=== PATIENT | female | born 1940 | race Caucasian/White ===

== ENCOUNTER 2016-09-23 09:41 | Observation (INO) ==
[2016-09-23] MEDS: 0.9 % Sodium Chloride 1,000 ML IVC SCH ×2 (10:42→17:19)
[2016-09-23] MEDS ORDERED: *HR* Midazolam HCl 2 MG/2 ML VIAL ONE (11:32)
[2016-09-23] MEDS ORDERED: *HR* FentaNYL (PF) 100 MCG/2 ML VIAL ONE (11:33)
[2016-09-23] MEDS ORDERED: 0.9 % Sodium Chloride 1,000 ML ONE ×2 (11:33→13:27)
[2016-09-23] MEDS ORDERED: *HR* Heparin 10,000 UNIT/10 ML VIAL ONE (11:33)
[2016-09-23] MEDS ORDERED: Heparin 1,000 UNITS/500 mL NS 500 ML ONE (11:33)
--- NOTE | 2016-09-23 11:48 | History & Physical Report ---
Date of Encounter: 09/23/16 Time of Encounter: 11:48 24 Hour HP Update - Instructions Instructions: If the History and Physical is less than 30 days old and was completed prior to A.M. admission and or procedure and has NOT been updated on calendar day of procedure please complete this update prior to performing procedure. - Update Patient reports changes in Medical Condition: No Changes in examination, assessment, or condition: No Changes in Medication: No Preop tests/diagnostics Reviewed: Yes Surgery Remains Indicated: Yes Consent for Planned Operative Procedure(s) Verified: Yes - Pre-Operative Checklist Preoperative Checklist Indicated: No Prophylactic Antibiotic Ordered: No Home Medications Include Beta Tong: Yes Beta Tong Taken Today (Day of Surgery): Yes Beta Tong Taken Yesterday (Day Prior to Surgery): Yes Is VTE Prophylaxis Indicated?: NO
--- NOTE | 2016-09-23 11:49 | Pre-Sedation Evaluation ---
Pre-sedation evaluation - Pre-sedation checklist Date of procedure: 09/23/16 Procedure: PERIPHERAL AND CAROTID ANGIOGRAM Recent Vitals: Last Vital Signs Temp 97 F L 09/23/16 10:05 Pulse 44 09/23/16 10:05 Resp 18 09/23/16 10:05 BP 173/54 09/23/16 10:05 Pulse Ox 98 09/23/16 10:05 H&P (including ROS) documented in medical record: Yes Previous reaction to sedatives/anesthetics: No Dietary Status: NPO after Midnight Dentition: No loose teeth or bridges Possible difficult airway: No ASA Classification *see protocol: CLASS III-Severe systemic disease Plan of Care: Pt appropriate candidate for procedure/moderate/conscious sedation , Risks/benefits of procedure/sedation discussed w/ patient/family
--- NOTE | 2016-09-23 12:55 | Procedure Note ---
Date of procedure: 09/23/16 Pre-op diagnosis: Carotid stenosis/PAD/Claudivcation Post-op diagnosis: same Procedure: arch aortogram bilateral carotid angiograms abdominal aortogram aortogram with bilateral runoff Anesthesia: MAC Surgeon: Dung Gearrdo Condition: stable Disposition: same day (patient will need bilateral carotid endarterectomy and bilateral fem-pop bypass grafts)
[2016-09-23] MEDS ORDERED: *HR* HYDROcodone/Acet 5/325 mg TABLET PO PRN (12:59)
[2016-09-23] MEDS ORDERED: Acetaminophen 325 MG TABLET PO PRN (12:59)
[2016-09-23] MEDS ORDERED: Ondansetron 4 MG/2 ML VIAL IVP PRN (12:59)
[2016-09-23] MEDS ORDERED: *HR* Morphine 2 MG/ML SYRINGE IVP PRN (12:59)
--- NOTE | 2016-09-23 12:59 | Discharge Summary ---
Outpatient Proc Discharge Plan - Plan Additional Instructions: per femoral sheath protocol will need bilateral carotid endarterectomy will need bilateral femoral-popliteal bypass grafts Home Medications: ALPRAZolam [Xanax 0.25 MG Tablet] 0.25 mg PO BID 09/23/16 [History] Allopurinol [Zyloprim 100 MG] 100 mg PO DAILY 09/23/16 [History] Aspirin [Lo-Dose Aspirin EC] 81 mg PO DAILY 09/23/16 [History] Clopidogrel [Plavix] 75 mg PO DAILY 09/23/16 [History] Loratadine [Claritin] 10 mg PO DAILY 09/23/16 [History] Metoprolol Tartrate [Lopressor] 50 mg PO BID 09/23/16 [History] Ramipril [Altace] 10 mg PO DAILY 09/23/16 [History] Ranitidine HCl [Heartburn Relief] 150 mg PO BID 09/23/16 [History]
--- NOTE | 2016-09-23 14:46 | Invasive Diagnostic Lab Proc ---
Name: Ira Harkins Date of Study: 09/23/2016 Date: 1940 Ht: 165.1 in Medical Record#: [id number] Age: 76 Wt: 78.89696 lb Gender: Female BSA: 1.86 Order #: [id number] BMI: 28.95 Physicians Performing MD: Dung Gerardo MD, FACS Referring MD: Referring MD: Elpidio Ruggiero MD Staff Name Position Time In Kathya Crowley RT (R) Pre-Op Nurse Yaneli Yeung RT (R) Monitor Kathya Crowley RT (R) Scrub Rosana Campuzano RN Farm Boss Indications Asymptomatic Carotid Stenosis Claudication Procedures Performed AORTOGRAPHY, ABDOMINAL S&I AORTOGRAPHY EXT Bilat S&I BILAT PLCE CATH CARTD/INOM ART Pre-Procedure Checklist Informed consent is complete signed and on chart. H&P is on chart. ID band is on and ID verified with patient. Patient NPO for procedure The procedure was described for the patient and questions were answered. Blood Pressure: 173/54 ECG is on chart. Rhythm: Sinus Bradycardia Plan of Care Patient will tolerate the procedure without complications. Adequate level of comfort will be maintained. Hemodynamics will remain stable Patient will recover from procedure without complications. Respiratory function will be maintained. Cardiac rhythm will remain stable. Patient temperature will be maintained. Patient and/or family have verbalized understanding of the procedure. Patient Education Intravenous Access Time IV Size Location DC'd Fluid/Drip Rate Units RN 10:39 Started with 20g 1 1/4" Lt Antecubital 0.9NaCl 25 ml/hr Jemima Brian RN Allergies SULFA (sulfonamide) Amoxicillin guaifenesin Sulfa (Sulfonamide Antibiotics) Ejrftrz-Rlk-Ozl Reductase Inhibitor baclofen hydrochlorothiazide Vital Signs Time BP Systolic BP Diastolic HR O2 Sats ASA 10:39 AM 173 54 44 98 11:51 AM 11:52 AM 178 70 47 100 11:54 AM 171 68 49 100 11:57 AM 161 67 48 100 12:00 PM 163 67 46 100 12:03 PM 159 64 45 100 12:06 PM 169 69 49 100 12:09 PM 179 69 52 100 12:12 PM 176 69 53 100 12:15 PM 170 70 50 100 12:19 PM 157 63 44 100 12:21 PM 159 74 49 100 12:24 PM 148 65 48 100 12:28 PM 159 71 46 100 12:30 PM 159 65 52 100 12:33 PM 155 62 46 100 12:37 PM 175 70 48 100 12:39 PM 166 68 47 100 12:42 PM 160 66 47 99 12:46 PM 160 69 56 98 12:48 PM 167 75 46 100 12:51 PM 174 73 47 99 12:54 PM 170 72 48 99 12:57 PM 170 69 42 100 01:00 PM 160 64 43 97 01:04 PM 176 88 49 100 01:07 PM 180 89 54 99 01:09 PM 176 93 54 100 01:12 PM 150 73 47 97 01:15 PM 139 82 46 98 Procedure Medications Time Medication Dose Units Method Route 11:51 AM Versed 1 mg Intravenous 11:51 AM Fentanyl 50 mcg Intravenous 11:59 AM Lidocaine 2% 10 ml Subcutaneous 12:35 PM Fentanyl 50 mcg Intravenous 12:35 PM Oxygen 2 L/min nasal cannula 01:42 PM Zofran 4 mg Intravenous Luz Marina Score Preprocedure Postprocedure Activity 2- Moves 4 extremities sustained head lift Activity Circulation 2- SBP +/= 20 points of pre-anesthetic level Circulation Consciousness 2- Awake and alert oriented x 3 Consciousness O2 Saturation 2- Able to maintain O2 satruation of 92% on room air O2 Saturation Respiratory 2- Able to deep breathe and cough well Respiratory Total Score 10 Total Score Contrast: Isovue 300- 150ml Contrast Amount: 185 ml Fluoro Dose: 894 mGy Procedure Log Time Note Entered By 11:43 AM Pt arrived to screedman/laborer 1 at 11:43 11:43 AM Yaneli Yeung RT (R) Position: Monitor Time in: 11:43 11:44 AM Kathya Crowley RT (R) Position: Scrub Time in: 11:43 11:44 AM Rosana Campuzano RN Position: Farm Boss Time in: 11:44 11:44 AM Case delayed: No [email or web address] 11:45 AM Physician arrived 11:45 11:45 AM Kayode completed [email or web address] 11:45 AM Sign in performed according to hospital policy. [email or web address] 11:45 AM Procedure start 11:45 ell 11:51 AM 11:51 Versed 1 mg Intravenous Given by Rosana Campuzano RN [facility] 11:51 AM 11:51 Fentanyl 50 mcg Intravenous Given by Rosana Campuzano RN [facility] 11:51 AM Time: 11:51 Is patient comfortable and pain free?: Yes [facility] 11:51 AM Time: 11:51LOC: 4 = Oriented but drowsy [facility] 11:51 AM IV Supplies used: J loop Angio Cath. [facility] 11:51 AM Patient charges- Angio tray pack, Pulse Oximetry and ACIST tubing and transducer [facility] 11:57 AM Time out perfomed [email or web address] 11:59 AM 11:59 10 ml Lidocaine 2% to right groin Subcutaneous Given By Dung Gerardo MD, FACS [email or web address] 12:01 PM Access obtained in the right femoral artery by percutaneous puncture. 5 Fr. 10 cm Terumo [place] sheath placed in right femoral artery [email or web address] 12:01 PM 0.035 145cm J-wire wire utilized to assist with catheter placement [email or web address] 12:01 PM 5Fr Pigtail catheter inserted over the wire [email or web address] 12:02 PM 3 mls contrast injected into Ao arch [email or web address] 12:03 PM Aortic arch angiography performed in [place] contrast injected 10/25 mls. [email or web address] 12:04 PM Catheter removed [email or web address] 12:04 PM 5Fr Rahman 2 catheter inserted over the wire [email or web address] 12:05 PM 2 mls of contrast injected into Rt CCA. [email or web address] 12:06 PM Right carotid angiography performed in AP contrast injected 5/7 mls. [email or web address] 12:07 PM Right carotid angiography performed in lateral contrast injected 5/7 mls. [email or web address] 12:09 PM Right carotid angiography performed in PHAM contrast injected 3/5 mls. [email or web address] 12:10 PM Physician reviewing films. [email or web address] 12:10 PM Catheter repositioned for LCCA. [email or web address] 12:12 PM Left carotid angiography performed in AP contrast injected 5/7 mls. [email or web address] 12:12 PM Left carotid angiography performed in lateral contrast injected 5/7 mls. [email or web address] 12:13 PM Left carotid angiography performed in [place] contrast injected 3/5 mls. [email or web address] 12:14 PM Left carotid angiography performed in PHAM contrast injected 3/5 mls. [email or web address] 12:15 PM Diagram Region: Cerebrovascular Arteries Anatomical Region: CV-Art80% Lesion in Proximal Left Internal Carotid Intervention done: 0 (1=yes, 0=no) [email or web address] 12:16 PM Diagram Region: Cerebrovascular Arteries Anatomical Region: CV-Art80% Lesion in Proximal Right Internal Carotid Intervention done: 0 (1=yes, 0=no) [email or web address] 12:17 PM Left subclavian angiography performed in [place] contrast injected 10/10 mls. [email or web address] 12:18 PM Diagram Region: Cerebrovascular Arteries Anatomical Region: CV-Ojy177% Lesion in Proximal Left Vertebral Intervention done: 0 (1=yes, 0=no) [email or web address] 12:18 PM Catheter removed [email or web address] 12:20 PM Pigtail catheter re-inserted. [email or web address] 12:21 PM Abdominal aorta angiography performed in AP contrast injected 10/20 mls. [email or web address] 12:23 PM Right common iliac angiography performed in [place] contrast injected 8/12 mls. [email or web address] 12:24 PM Left common illiac angiography performed in PHAM contrast injected 8/12 mls. [email or web address] 12:26 PM Setting up for stepping [email or web address] 12:26 PM Abdominal angiogram with runoff completed: 6 ml/sec for a total of 60 mls [email or web address] 12:29 PM Physician reviewing films. [email or web address] 12:31 PM Catheter removed [email or web address] 12:32 PM 5Fr Omniflush catheter inserted over the wire [email or web address] 12:32 PM Diagram Region: Lower Extremity Arteries Anatomical Region: LE-Ohk375% Lesion in Proximal Left Superficial Femoral Intervention done: 1 (1=yes, 0=no) [email or web address] 12:32 PM Diagram Region: Lower Extremity Arteries Anatomical Region: LE-Mtz709% Lesion in Proximal Right Superficial Femoral Intervention done: 0 (1=yes, 0=no) [email or web address] 12:34 PM Catheter removed [email or web address] 12:34 PM Intervention started at this time [email or web address] 12:34 PM Sheath exchanged for a 6 Fr 45 cm Terumo [place] sheath inserted into right femoral artery [email or web address] 12:35 PM 12:35 Fentanyl 50 mcg Intravenous Given by Rosana Campuzano RN [email or web address] 11:50 AM 12:35 Oxygen at 2 L/min per nasal cannula by Rosana Campuzano RN [email or web address] 12:37 PM 2 mls of contrast injected into Rt SFA. [email or web address] 12:38 PM 5Fr 65cm Glidecath Angled-Taper guide catheter advanced to target vessel [email or web address] 12:39 PM 0.035 Glidewire Angled 260cm guidewire advanced to target vessel. [email or web address] 12:43 PM 3 mls of contrast injected into Lt SFA. [email or web address] 12:45 PM Guide wire removed intact [email or web address] 12:45 PM Guide catheter removed intact [email or web address] 12:45 PM Sheath pulled back. [email or web address] 12:47 PM Procedure completed at 12:47 [email or web address] 12:48 PM Sign Out completed: Radiation Dose 894.10 mGy Fluoro Time: 10.1 minutes. Isovue 300- 150ml contrast 185 ml given by Dung Gerardo MD, FACS. Complications: None. Confirmed administered medications:Yes [email or web address] 12:48 PM Isovue 300- 150ml,1 bottle(s) used. [email or web address] 12:51 PM Arterial sheath pulled using manual compression and V+Pad for 20 minutes by Kathya Crowley RT (R) [email or web address] 12:51 PM Post Blood Pressure: 167/75 [email or web address] 12:51 PM Post EKG: Sinus Bradycardia [email or web address] 12:51 PM Information taught: Carotid angiogram and Peripheral angiogram [email or web address] 12:51 PM Education needs: Procedure, Plan of Care, and Disease Process [email or web address] 12:51 PM Learning barriers: None [email or web address] 12:51 PM Education methods: Verbal [email or web address] 12:51 PM Education evaluation: Able to repeat information [email or web address] 12:51 PM Patient pain level 10/10 Pt complained of right sided abdominal pain upon palpation it is noted that the area was firm and tender to touch. Palpation of access area no hematoma noted. [email or web address] 12:51 PM Delay to floor: No [email or web address] 12:51 PM Family placed in consult room. [email or web address] 12:53 PM Report given to Jemima SAMUEL. Pt taken to Holding room, Room # 1 12:52 [email or web address] 12:54 PM Pt taken to Holding room [email or web address] 12:54 PM Fluoro Time: 10.1 minutes [email or web address] 12:54 PM Isovue 300- 150ml contrast 185 ml given by Dung Gerardo MD, FACS [email or web address] 12:54 PM Radiation Dose 894.10 mGy [email or web address] 01:16 PM Site status No bleeding/hematoma - Rt Groin as reported by Rubia Brian RN at 13:16 [email or web address] 01:16 PM Opsite applied [email or web address] 01:16 PM Patient out of room 13:16 [email or web address] 12:00 PM HR=46 bpm, TPBZ=767/67 mmhg, JdQ7=111.0 %, Resp=13 B/min, Comment=SB 12:03 PM HR=45 bpm, COKE=467/64 mmhg, KlX7=161.0 %, Resp=15 B/min, Comment=SB 12:06 PM HR=49 bpm, DZAO=773/69 mmhg, SzU4=421.0 %, Resp=13 B/min, Comment=SB 12:09 PM HR=52 bpm, MTHH=582/69 mmhg, YsS1=170.0 %, Resp=11 B/min, Comment=SB 12:12 PM HR=53 bpm, USBA=850/69 mmhg, NtQ6=053.0 %, Resp=13 B/min, Comment=SB 12:15 PM HR=50 bpm, DOCW=067/70 mmhg, HoB6=524.0 %, Resp=11 B/min, Comment=SB 12:19 PM HR=44 bpm, CHNN=960/63 mmhg, IdN1=979.0 %, Resp=13 B/min, Comment=SB 12:21 PM Recorded ECG: HR=43 Condition=Condition 1 12:21 PM HR=49 bpm, HMNE=860/74 mmhg, PfC7=289.0 %, Resp=23 B/min, Comment=SB 12:24 PM HR=48 bpm, KFKD=176/65 mmhg, FbK5=707.0 %, Resp=12 B/min, Comment=SB 12:54 PM HR=48 bpm, ZVUE=377/72 mmhg, SpO2=99.0 %, Resp=16 B/min, Comment=SB 12:57 PM HR=42 bpm, ACXZ=610/69 mmhg, ZlS0=933.0 %, Resp=15 B/min, Comment=SB 01:00 PM HR=43 bpm, FWFO=698/64 mmhg, SpO2=97.0 %, Resp=10 B/min, Comment=SB 01:04 PM HR=49 bpm, ANOV=957/88 mmhg, DjF3=111.0 %, Resp=18 B/min, Comment=SB 01:07 PM HR=54 bpm, KSNM=375/89 mmhg, SpO2=99.0 %, Resp=25 B/min, Comment=SB 01:09 PM HR=54 bpm, DTYL=595/93 mmhg, VyY1=351 %, Resp=11 B/min 01:12 PM HR=47 bpm, RNGY=683/73 mmhg, SpO2=97.0 %, Resp=16 B/min, Comment=SB 01:15 PM HR=46 bpm, MIQS=532/82 mmhg, SpO2=98 % 01:18 PM Vitals capture stopped. 11:43 AM PVIStat 11:51 AM Vitals capture started with the following parameters, Patient=Adult, Interval=3 min, Initial Gtpohbia=088 mmHg, Deflation Rate=5 mmHg, Cuff placed on Right Arm 11:51 AM Recorded ECG: HR=48 Condition=Condition 1 11:52 AM HR=47 bpm, IOIZ=573/70 mmhg, DaV8=904.0 %, Resp=11 B/min, Comment=SB 11:54 AM HR=49 bpm, NJHM=424/68 mmhg, RuS1=324.0 %, Resp=15 B/min 11:57 AM HR=48 bpm, MRQI=940/67 mmhg, JoV0=477.0 %, Resp=11 B/min, Comment=SB 12:28 PM HR=46 bpm, DWDB=232/71 mmhg, KoU1=745.0 %, Resp=18 B/min, Comment=SB 12:30 PM HR=52 bpm, KETD=254/65 mmhg, ExN8=841.0 %, Resp=20 B/min, Comment=SB 12:30 PM Recorded ECG: HR=52 Condition=Condition 1 12:33 PM HR=46 bpm, ZCYA=921/62 mmhg, GbA2=298.0 %, Resp=15 B/min, Comment=SB 12:37 PM HR=48 bpm, JTVK=825/70 mmhg, AgK8=930.0 %, Resp=15 B/min, Comment=SB 12:39 PM HR=47 bpm, RLQV=043/68 mmhg, IjU2=319.0 %, Resp=25 B/min, Comment=SB 12:42 PM HR=47 bpm, BENY=765/66 mmhg, SpO2=99.0 %, Resp=22 B/min, Comment=SB 12:46 PM HR=56 bpm, LOXE=179/69 mmhg, SpO2=98.0 %, Resp=16 B/min, Comment=SB 12:48 PM HR=46 bpm, EKCW=724/75 mmhg, OcK6=711.0 %, Resp=20 B/min, Comment=SB 12:51 PM HR=47 bpm, KGZF=027/73 mmhg, SpO2=99.0 %, Resp=13 B/min, Comment=SB 01:20 PM Pt went to holding area. Dr Gerardo notified that pt continued to have right sided abdominal pain and firmness. CT ordered. [email or web address] 01:[address] stat accompanied by Rosana Campuzano RN, Rubia Brian RN. Life Pack in place. [email or web address] 01:22 PM BP 66/40, fluids opened. [email or web address] 01:24 PM BP 80/59 [email or web address] 01:[address] scan. [email or web address] 01:42 PM Time: 13:42 Zofran 4 mg Intravenous Given by Rosana Campuzano RN [email or web address] 01:46 PM Large Retroperitoneal bleed verified by Radiologist. [email or web address] 01:48 PM Patient admitted to ICU. [email or web address] 01:50 PM Report given to Titus SAMUEL ICU [email or web address] 01:40 PM Complications: Retroperitoneal Hematoma [email or web address] Peripheral Anatomy Vessel Pathology Lesion Stenosis Aneurysm Diameter Thrombus Type Left Internal Carotid Lesion 90 Left Internal Carotid Lesion 60 Left Vertebral Lesion 100 Left Superficial Femoral Lesion 100 Right Superficial Femoral Lesion 100 Peripheral Intervention Anatomical Region:LE-Art Vessel Segment:Undefined Bookmark: [email or web address] Pathology Type:Lesion Pre-Stenosis:100 Post Procedure Information Blood Pressure: 167/75 mmHg Rhythm: Sinus Bradycardia Site Checks Time Location Status Staff Sheath In? Note 1:16:00 PM Rt Rubia Reddy RN Pulses Time Site Pre Procedure Post Procedure Note 09/23/2016 10:39:00 AM Bilateral DP & PT Doppler Doppler 09/23/2016 10:39:00 AM Bilateral radial 2+ 2+ Updated by Kathya Crowley, RT (R) on 09/23/2016 2:40:24 PM RT Margi electronically signed on 09/23/2016 2:41:08 PM with status of Final
--- NOTE | 2016-09-23 14:52 | Event Note ---
Date of Encounter: 09/23/16 Time of Encounter: 14:49 Mrs. Mega Harkins had successfully completed her angiogram. The right groin sheath was removed and approximately 10-12 minutes into the compression was noted the patient had some discomfort on her lower right abdominal area. This persisted and she then was sent for CT scan. She remained hemodynamically stable. CT scan revealed a right retroperitoneal hematoma. The patient was then sent to the intensive care unit for observation. The puncture was via the right femoral artery and was a single puncture that was uncomplicated. Manipulation of the wires and sheaths were also uncomplicated in this patient's care. On exam the patient is awake and alert. She is in no distress. Vital signs are stable. She has marked bradycardia but this existed prior to admission and she is on beta blockade therapy. The patient has tenderness localized to the right lower quadrant. Vascular status otherwise remained stable. Neurologic status otherwise remained stable. 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 The patient will require bilateral carotid endarterectomies and bilateral femoral- popliteal bypass grafts. This issue was discussed in detail with the and then again with the patient and the in the intensive care unit. At this time the patient will be kept on bedrest and a recheck of her hemoglobin. I anticipate that this is a very self-contained process and as there was no intravenous heparin given that this will be a limited clinical issue. I anticipate the patient will be able to be released to home tomorrow.
[2016-09-23 15:04] LABS: Hematocrit 33.7 % (35.3-44.9); Hemoglobin 10.6 g/dL (11.5-15.4)
[2016-09-23] MEDS ORDERED: 0.9 % Sodium Chloride 1,000 ML IVC SCH (17:21)
[2016-09-23 18:47] LABS: Hematocrit 33.3 % (35.3-44.9); Hemoglobin 10.4 g/dL (11.5-15.4)
--- NOTE | 2016-09-23 20:45 | Vascular/Endovas Progress Note ---
Date of Encounter: 09/23/16 Time of Encounter: 20:00 - Assessment and plan (1) Retroperitoneal hematoma Current Visit: Yes Status: Acute The retroperitoneal hematoma is stable and self-contained as anticipated. The follow-up H&H from late this afternoon is also stable indicating no further signs of bleeding. The patient is clinically improved. I reviewed with the patient again the findings of the angiogram and the retroperitoneal issue. I explained our plan of treatment. All questions were answered. The patient understands and agrees with the plan as outlined. (2) PAD (peripheral artery disease) Current Visit: Yes Status: Chronic The patient has bilateral chronic lower extremity intermittent claudication. 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 Patient will require bilateral lower extremity femoral-popliteal bypass grafts. This will be performed following her carotid surgeries. (3) Carotid artery disease Current Visit: Yes Status: Chronic Asymptomatic high grade bilateral carotid artery disease. Abnormal duplex scan which led to angiogram. Patient will require bilateral carotid endarterectomies in the near future. The left carotid endarterectomy will be performed first. Qualifiers: Laterality: bilateral Qualified Code(s): I77.9 - Disorder of arteries and arterioles, unspecified (4) CAD (coronary artery disease) Current Visit: No Status: Chronic Patient has history of coronary artery disease and coronary stent angioplasty up proximally 12 years ago. Due to her diffuse cerebrovascular and peripheral vascular disease patient will require nonexercise nuclear medicine cardiac stress testing prior to general anesthesia and carotid surgery. This will be arranged for next week. Qualifiers: Coronary Disease-Associated Artery/Lesion type: ruby artery [place] vs. transplanted heart: ruby heart Associated angina: without angina Qualified Code(s): I25.10 - Atherosclerotic heart disease of ruby coronary artery without angina pectoris - Subjective Interval history: The patient is feeling better. She had 1 episode of nausea and vomiting. She states the abdominal pain is less and she is more comfortable. Vital Signs, Last 4 Hours Temp Pulse Resp BP Pulse Ox 09/23/16 20:00 64 17 122/54 98 09/23/16 19:33 97.7 F 09/23/16 19:30 62 12 119/53 97 09/23/16 18:56 60 12 148/70 97 09/23/16 17:00 56 12 119/48 98 Exam: The patient is in a reverse Trendelenburg position in the intensive care unit. She is awake and alert. She is in no distress. Her lungs are clear. Cardiac exam reveals a regular rhythm and rate. There are no murmurs or rubs. Her abdomen is soft and obese and nontender. She has active bowel sounds. There are no abdominal bruits. There is mild tenderness to the right lower quadrant which is less than what was clinically observed earlier today. There is no ecchymosis. There is no hematoma. The right groin puncture site is clean and dry. There is no swelling at this area. Results 09/23/16 18:36 Lab Results, Last 24 hours 09/23/16 09/23/16 14:56 18:36 Hgb 10.6 L 10.4 L Hct 33.7 L 33.3 L Consult Discharge Plan - Plan Additional Instructions: per femoral sheath protocol will need bilateral carotid endarterectomy will need bilateral femoral-popliteal bypass grafts Referrals: Elpidio Ruggiero MD [Primary Care Provider] -
[2016-09-24 01:51] LABS: BUN/Creatinine Ratio 19 (6-26); Blood Urea Nitrogen 20 mg/dL (7-20); Calcium 8.5 mg/dL (8.6-10.8); Carbon Dioxide 20 mEq/L (19-29); Chloride 109 mEq/L (98-109); Glucose 109 mg/dL (70-99); Osmolality,Calculated 287 (280-300); Potassium 4.6 mEq/L (3.5-4.5); Sodium 137 mEq/L (136-145); eGFR For African Americans > 60 (> 60); eGFR For Non-African Americans 51 (> 60)
[2016-09-24 02:18] LABS: Hematocrit 29.8 % (35.3-44.9); Hemoglobin 9.6 g/dL (11.5-15.4); Mean Corpuscular HGB Conc 32.2 g/dL (31.6-35.5); Mean Corpuscular Hemoglobin 29.4 pg (28.0-33.3); Mean Corpuscular Volume 91.4 fL (83.0-100.0); Mean Platelet Volume 12.5 fL (9.4-12.4); Platelet Count 161 K/mcL (140-400); Red Blood Count 3.26 M/mcL (3.82-4.97)
[2016-09-24 08:17] VITALS: BP 133/61
--- NOTE | 2016-09-24 09:07 | Discharge Summary ---
Date of Encounter: 09/24/16 Time of Encounter: 09:05 - Discharge Diagnosis (1) Retroperitoneal hematoma Priority: Primary Status: Acute Comments: Patient has self contained retroperitoneal hematoma. Hematoma is stable. Patient will be advanced in regards to her diet and activity. Anticipate discharge today. 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 Patient will need future bilateral femoral-popliteal bypass grafts. (3) Carotid artery disease Priority: Primary Status: Chronic Comments: Patient will need bilateral carotid endarterectomies. Left carotid will be performed first. Qualifiers: Laterality: bilateral Qualified Code(s): I77.9 - Disorder of arteries and arterioles, unspecified (4) CAD (coronary artery disease) Priority: Secondary Status: Chronic Comments: The patient has asymptomatic coronary artery disease. Patient will need nonexercise cardiac stress testing prior to initiation of surgical therapies. This will be obtained as an outpatient in the near future. Qualifiers: Coronary Disease-Associated Artery/Lesion type: [place] artery [place] vs. transplanted heart: [place] heart Associated angina: without angina Qualified Code(s): I25.10 - Atherosclerotic heart disease of [place] coronary artery without angina pectoris - Discharge Medications Home Medications: ALPRAZolam [Xanax 0.25 MG Tablet] 0.25 mg PO BID 09/23/16 [History] Allopurinol [Zyloprim 100 MG] 100 mg PO DAILY 09/23/16 [History] Aspirin [Lo-Dose Aspirin EC] 81 mg PO DAILY 09/23/16 [History] Clopidogrel [Plavix] 75 mg PO DAILY 09/23/16 [History] Loratadine [Claritin] 10 mg PO DAILY 09/23/16 [History] Metoprolol Tartrate [Lopressor] 50 mg PO BID 09/23/16 [History] Ramipril [Altace] 10 mg PO DAILY 09/23/16 [History] Ranitidine HCl [Heartburn Relief] 150 mg PO BID 09/23/16 [History] Allergies/Adverse Reactions: Allergies Amoxicillin Allergy (Verified 09/23/16 10:01) Anaphylaxis guaifenesin Allergy (Verified 09/23/16 10:01) Swelling of Lip/Tongue/Throat Sulfa (Sulfonamide Antibiotics) Allergy (Verified 09/23/16 09:55) Anaphylaxis baclofen Adverse Reaction (Verified 09/23/16 10:01) See Comments doxycycline Adverse Reaction (Verified 09/23/16 10:01) Vomiting hydrochlorothiazide Adverse Reaction (Verified 09/23/16 10:01) See Comments Idlwlei-Uwr-Oei Reductase Inhibitor [Statins] Adverse Reaction (Verified 10:01) Muscle Pain flu vaccine Adverse Reaction (Uncoded 09/23/16 10:01) See Comments Procedures/tests Complete & Pending: Procedures Performed prior 72 hours Category Date Time Status CT abd pelvis wo no iv no oral [CT] Stat Cat Scan 09/23/16 13:27 Completed CL Carotid Angiography [CL] Routine Telephone Surveyor 09/23/16 10:02 Ordered CL Peripheral Angiography [CL] Routine Telephone Surveyor 09/23/16 10:02 Ordered Date of admission: 09/23/16 18:08 Primary care physician: Elpidio Ruggiero MD Consults: None Procedure(s) Performed: Angiogram Discharging clinician: Dung Gerardo Anticipated date of discharge: 09/24/16 - Patient Status Disposition: Home, Self-Care Condition: Good Functional capacity at discharge: independent ambulation Overall status at discharge: patient is progressing back to baseline - Discharge Instructions Follow Up With: Elpidio Ruggiero MD [Primary Care Provider] - Dung Gerardo MD [Partnered Physician] - (My office will contact patient this week regarding scheduling of non-exercise cardiac stress test. Future scheduling of carotid surgeries and lower extremity surgeries will be made in near future.) Additional Instructions: per femoral sheath protocol will need bilateral carotid endarterectomy will need bilateral femoral-popliteal bypass grafts - Diet and Activity Activity: increase activity as tolerated Diet: advance to your usual diet - Hospital Course Hospital course: Ms. Mega Harkins is a 76 year old female with symptomatic bilateral lower extremity disease and high-grade carotid artery stenosis by duplex scanning. Patient underwent an angiogram confirming these findings. Patient will need bilateral carotid and bilateral lower extremity revascularization. The patient' s right groin sheath was removed and while the patient was being monitored and the site compressed it was noted that she had discomfort and some firmness in the right lower quadrant. Patient also complained of pain. A CT scan was done which revealed a right retroperitoneal hematoma. Patient was then taken to the ICU unit for observation. The patient had uneventful observation period. Her hemoglobin remained stable. Her abdominal exam improved. She will be advanced in regards to her diet and activities and discharged later today. - Time Spent with Patient Total time spent providing and/or coordinating discharge services: Exam Vital Signs, Last 4 Hours Temp Pulse Resp BP Pulse Ox 09/24/16 08:00 74 16 133/61 96 09/24/16 07:30 98.5 F 74 09/24/16 06:00 71 14 132/52 94 General: Present: Conversant, No Apparent Distress, Well developed, Well nourished HEENT: Absent: Atraumatic Neck: Absent: JVD Cardiac: Present: Reg Rate and Rhythm, Normal S1 and S2 Lungs: Present: Normal Breath Sounds Neuro: Present: Alert and responsive, No focal deficits noted Abdomen: Present: Soft, Other (Mild right lower quadrant tenderness. This is much improved however compared to previous exams yesterday. There is no ecchymosis. Patient has active bowel sounds. There is no distention.). Absent: Masses - VTE Documentation of Mechanical Device: Intermittent pneumatic compression device
== END 2016-09-24 12:55 | disposition home or self-care (01) ==
LOC: ICNU 09:41 → INVDIALAB 09:41 → ICNU 13:51
PROVIDERS: ADMIT Surgery Vascular Surgery; ATTEND Surgery Vascular Surgery

== ENCOUNTER 2016-10-18 09:17 | Inpatient (IN) ==
[2016-10-18] MEDS ORDERED: Vancomycin 1,250 MG in D5% in Water 250 ML IVPB ONE (09:40)
[2016-10-18] MEDS ORDERED: Albuterol 2.5 MG/3 ML NEBULIZER IH ONE (09:40)
[2016-10-18] MEDS ORDERED: Ringers Solution, Lactated 1,000 ML IVC SCH (09:45)
--- NOTE | 2016-10-18 10:42 | Anesthesia Evaluation PreOp ---
Date of Encounter: 10/18/16 Time of Encounter: 11:30 - Past History Planned Operation: Left Carotid endarterectomy Cardiac History: TN, HTN, Hyperlipidemia, Cardiac Stent (Had TN in 2003. Underwent stenting at that time and has been stable. Was evaluated by Dr. Gerardo for presence of carotid bruit. Noted to have positive stress test. Patient underwent cardiac cath. Conference with cardiology, Drs. Gerardo and Sumanth, it was felt that patient should have carotid endarterectomy first and then CABG performed. 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 AIDE COOK History: Denies Any Significant HX Other Medical History: Denies Any Significant HX Anesthesia History: No Prior Anesthetic Complications, Past Anesthesia Alcohol Use: none Drug use: none Medications and Allergies ALPRAZolam [Xanax 0.25 MG Tablet] 0.25 mg PO BID PRN 09/23/16 [History] Allopurinol [Zyloprim 100 MG] 100 mg PO DAILY 09/23/16 [History] Aspirin [Lo-Dose Aspirin EC] 81 mg PO DAILY 09/23/16 [History] Clopidogrel [Plavix] 75 mg PO DAILY 09/23/16 [History] Loratadine [Claritin] 10 mg PO DAILY 09/23/16 [History] Metoprolol Tartrate [Lopressor] 50 mg PO BID 09/23/16 [History] Ramipril [Altace] 10 mg PO DAILY 09/23/16 [History] Ranitidine HCl [Heartburn Relief] 150 mg PO BID 09/23/16 [History] Ferrous Sulfate [Iron] 325 mg PO BID 10/18/16 [History] 3 Allergy/AdvReac Type Severity Reaction Status Date / Time Amoxicillin Allergy Anaphylaxis Verified 10/18/16 10:03 guaifenesin Allergy Swelling Verified 10/18/16 10:03 of Lip/Tongue/Throat Sulfa (Sulfonamide Allergy Anaphylaxis Verified 10/18/16 10:03 Antibiotics) baclofen AdvReac See Verified 10/18/16 10:03 Comments doxycycline AdvReac Vomiting Verified 10/18/16 10:03 hydrochlorothiazide AdvReac See Verified 10/18/16 10:03 Comments Qetqlye-Doz-Kzf Reductase AdvReac Muscle Pain Verified 10/18/16 10:03 Inhibitor [Statins] flu vaccine AdvReac See Uncoded 10/18/16 10:03 Comments - Meds/Allergy Pre-op Review Medications Reviewed: Yes Allergies Reviewed: Yes Beta Blockers on Current Med List: Yes (last dose at 0630) Anesthesia Results - Labs Laboratory Tests 10/03/16 10/03/16 10/03/16 13:00 13:00 13:00 WBC 9.0 Hgb 8.4 L Hct 26.6 L Plt Count 345 PT 13.1 H INR 1.2 APTT 32.1 Sodium 138 Potassium 3.9 Chloride 105 Carbon Dioxide 26 BUN 14 Creatinine 1.06 - Imaging EKG: report reviewed, image reviewed (1st degree AV block with sinus rhythm) Anesthesia Exam Selected Entries 10/18/16 10:15 Temperature 97.8 F Pulse Rate 54 Respiratory Rate 18 Blood Pressure 157/59 O2 Sat by Pulse Oximetry 99 Weight: 76 kg BMI 28 NPO (# of Hours): over 8 hours - HEENT Pupil (Motor): Pupils equal Mallampati: II Teeth: Edentulous Oral Opening: Greater than 3 - DIETARY AIDE COOK LOC: Oriented DIETARY AIDE COOK Sensory: Deficit: Face (hearing aids) - Cardiac Rhythm: Regular Murmur: None - Pulmonary Breath Sounds: bilateral Clear Anesthesia Assess/Plan ASA Score: 3 Modified [place] Scale for Level of Consciousness: Cooperative, oriented, and tranquil Anesthetic Plan: General Monitoring Plan: Standard Monitors, A-Line Recovery Plan: PACU
[2016-10-18] MEDS ORDERED: Heparin 1,000 UNITS/500 mL NS 500 ML ONE (11:00)
--- NOTE | 2016-10-18 11:09 | History & Physical Report ---
Date of Encounter: 10/18/16 Time of Encounter: 11:08 24 Hour HP Update - Instructions Instructions: If the History and Physical is less than 30 days old and was completed prior to A.M. admission and or procedure and has NOT been updated on calendar day of procedure please complete this update prior to performing procedure. - Update Patient reports changes in Medical Condition: No Changes in examination, assessment, or condition: No Changes in Medication: No Preop tests/diagnostics Reviewed: Yes Pre-Op MRSA Screen: Negative Surgery Remains Indicated: Yes Consent for Planned Operative Procedure(s) Verified: Yes - Pre-Operative Checklist Preoperative Checklist Indicated: Yes Prophylactic Antibiotic Ordered: Yes Home Medications Include Beta Tong: Yes Beta Tong Taken Today (Day of Surgery): Yes Beta Tong Taken Yesterday (Day Prior to Surgery): Yes Is VTE Prophylaxis Indicated?: Yes
[2016-10-18] MEDS ORDERED: *HR* FentaNYL (PF) 100 MCG/2 ML VIAL ONE (11:11)
[2016-10-18] MEDS ORDERED: Lidocaine -MPF 2% 2 ML VIAL ONE (11:11)
[2016-10-18] MEDS ORDERED: *HR* Heparin 5,000 UNIT/ML VIAL ONE ×2 (11:11→14:00)
[2016-10-18] MEDS ORDERED: Ondansetron 4 MG/2 ML VIAL ONE (11:11)
[2016-10-18] MEDS ORDERED: Dexamethasone 4 MG/ML VIAL ONE (11:11)
[2016-10-18] MEDS ORDERED: Lidocaine -MPF 4% 5 ML AMPUL ONE (11:11)
[2016-10-18] MEDS ORDERED: *HR* Propofol 200 MG/20 ML VIAL IVP ONE (11:11)
[2016-10-18] MEDS ORDERED: *HR* Remifentanil 2 MG VIAL IVP ONE (11:11)
[2016-10-18] MEDS ORDERED: *HR* Phenylephrine 10 MG/ML VIAL ONE (11:11)
[2016-10-18] MEDS ORDERED: *HR* Succinylcholine 200 MG/10 ML VIAL IVP ONE (11:11)
[2016-10-18] MEDS ORDERED: *HR* HYDROmorphone 2 MG/ML SYRINGE ONE (11:12)
[2016-10-18] MEDS ORDERED: Heparin 1,000 UNITS/500 mL NS 1,000 ML ONE (11:19)
[2016-10-18] MEDS ORDERED: Lidocaine 1% 20 ML MDV ONE (11:19)
[2016-10-18] MEDS ORDERED: Vancomycin 1,000 MG VIAL ONE (13:12)
[2016-10-18] MEDS ORDERED: *HR* Promethazine 25 MG/ML VIAL IVP PRN (13:30)
[2016-10-18] MEDS ORDERED: *HR* HYDROmorphone (PF) 1 MG/ML SYRINGE IVP PRN (13:30)
--- NOTE | 2016-10-18 14:40 | Operative Note ---
Date of procedure: 10/18/16 Pre-op diagnosis: left carotid stenosis Post-op diagnosis: same Procedure: left carotid endarterectomy with 8 Fr shunt and bovine pericardial patch angioplasty Complications: none Anesthesia: GETA Surgeon: Dung Gerardo Estimated blood loss (cc): 100 Specimen: none Condition: stable Disposition: PACU Procedure in Detail: History This is Ira Harkins is a 76-year-old white female that was originally referred to [facility] for evaluation of lower extremity claudication symptoms. As part of her workup she was identified as having carotid artery disease. In preparation for both carotid and lower extremity surgery after an angiogram was performed a non-exercise cardiac stress test was ordered. This was abnormal and she went on to have a cardiac catheterization last Monday. This revealed triple- vessel coronary disease and the patient was recommended to undergo coronary artery bypass grafting. However due to the severity of her cerebrovascular disease it was opted to proceed with correction of one of the 2 carotid arteries before open heart bypass grafting. As the patient has a 90% left internal and an 80% right internal carotid artery stenosis it was opted to proceed with the left carotid endarterectomy at this time. In addition regarding her posterior circulation the left vertebral artery is occluded. Procedure After informed consent was obtained the patient was taken the operating room. General endotracheal anesthesia was established with arterial line pressure monitoring. The left neck was sterilely prepped and draped. A timeout protocol was observed. An oblique incision was made along the anterior border of the left sternocleidomastoid muscle. Dissection was carried down to the carotid sheath which was identified. The nervous structures were identified and preserved. Dissection was then made of the carotid vessels with selective dissection and controlled made of the common and carotid bifurcations as well as the superior thyroid artery. The hypoglossal nerve was clearly identified and preserved and kept away from the area of dissection. 5000 units of heparin were then administered intravenously. After 3 minute delay the vessels were clamped with the internal carotid artery clamped first. Using an 11 blade knife and Dumont scissors an arteriotomy was then made beginning at the distal aspect of the common carotid and extended up on into the internal carotid artery. An 8 [place] shunt was then inserted atraumatically. Patency of the shunt was confirmed by the use of intraoperative Doppler. Evaluation of the plaque revealed a smooth homogeneous plaque at the orifice of the internal carotid artery. This was a peripheral white type of plaque. There is no signs of intramural hemorrhage or luminal hemorrhage or clot. Attention was then directed to performing the endarterectomy. A septal dissector was used and the plaque was dissected from the carotid artery. The arteriotomy was extended both proximally and distally due to the extent of the plaque. The bed of the vessels then inspected for any residual debris. The endpoint was smooth area the patient then had the artery closed using a bovine pericardial patch. This was sewn into position using 2 6-0 Prolene sutures. Leaving a small space open on the suture line the shunt was clamped divided and removed. The final few sutures were placed. Appropriate backbleeding and flushing was then performed with the internal carotid artery last. Excellent pulsations and Doppler signals were identified throughout the carotid system. Hemostasis was achieved. A superficial cervical block was used using half percent Marcaine. The wound was then closed in layers using absorbable suture. No drains were placed. The patient tolerated the procedure well. There were no periprocedural complications. She woke from anesthesia without difficulty. She was neurologically intact. She was extubated and taken to the recovery room in stable condition.
[2016-10-18] MEDS ORDERED: *HR* Labetalol 20 MG/4 ML SYRINGE IVP ONE (15:00)
[2016-10-18] MEDS ORDERED: Acetaminophen 325 MG TABLET PO PRN (15:29)
[2016-10-18] MEDS ORDERED: *HR* Morphine 2 MG/ML SYRINGE IVP PRN ×2 (15:29)
[2016-10-18] MEDS ORDERED: Ondansetron 4 MG/2 ML VIAL IVP PRN (15:29)
[2016-10-18] MEDS ORDERED: ALPRAZolam 0.25 MG TABLET PO PRN (15:29)
[2016-10-18] MEDS ORDERED: Naloxone 0.4 MG/ML INJ IVP PRN (15:29)
--- NOTE | 2016-10-18 15:36 | Anesthesia Evaluation Post Op ---
Date of Encounter: 10/18/16 Time of Encounter: 15:34 - Vital Signs Vital Signs: vss - Lungs Lungs: Clear Ascult./Percussion - Airway Airway: Non-obstructed - Cardiovascular Baseline Rhythm - Mental Status Mental Status: Alert & Oriented, Answers Appropriately - Pain Pain Scale used: Cecy (Faces) - Nausea Vomiting Nausea Vomiting: Not Present - Hydration Hydration: Ice chips - Discharge PostOp Status: Transfer Patient to floor
[2016-10-18] MEDS: Famotidine 20 MG TABLET PO SCH (20:39)
[2016-10-18] MEDS: *HR* HYDROcodone/Acet 5/325 mg TABLET PO PRN (20:39)
[2016-10-19] MEDS ORDERED: Vancomycin 1,000 MG in D5% in Water 250 ML IVPB ONE
[2016-10-19] MEDS: *HR* HYDROcodone/Acet 5/325 mg TABLET PO PRN ×2 (05:54→16:05)
[2016-10-19 06:33] LABS: Hematocrit 31.7 % (35.3-44.9); Hemoglobin 10.1 g/dL (11.5-15.4); Immature Granulocytes % 0.3 % (0-4); Lymphocytes % 15.8 %; Mean Corpuscular HGB Conc 31.9 g/dL (31.6-35.5); Mean Corpuscular Hemoglobin 28.9 pg (28.0-33.3); Mean Corpuscular Volume 90.8 fL (83.0-100.0); Mean Platelet Volume 11.2 fL (9.4-12.4); Platelet Count 271 K/mcL (140-400); Red Blood Count 3.49 M/mcL (3.82-4.97); Red Cell Distribution Width 15.9 % (11.5-14.5); Segmented Neutrophils % 76.3 %
[2016-10-19 06:34] LABS: Basophils % 0.3 %; Eosinophils % 0.1 %; Lymphocytes # 1.7 K/mcL (0.6-4.6); Monocytes # 0.8 K/mcL (0.0-1.3); Monocytes % 7.2 %; Neutrophils # 8.4 K/mcL (1.6-8.9)
[2016-10-19 06:44] LABS: BUN/Creatinine Ratio 19 (6-26); Blood Urea Nitrogen 20 mg/dL (7-20); Calcium 9.1 mg/dL (8.6-10.8); Carbon Dioxide 23 mEq/L (19-29); Chloride 105 mEq/L (98-109); Glucose 95 mg/dL (70-99); Osmolality,Calculated 284 (280-300); Potassium 4.4 mEq/L (3.5-4.5); Sodium 136 mEq/L (136-145); eGFR For African Americans > 60 (> 60); eGFR For Non-African Americans 52 (> 60)
[2016-10-19] MEDS: Famotidine 20 MG TABLET PO SCH (08:36)
[2016-10-19] MEDS ORDERED: Aspirin Enteric Coated 81 MG Tablet PO SCH (09:00)
[2016-10-19] MEDS ORDERED: Lisinopril 20 MG TABLET PO SCH (09:00)
[2016-10-19] MEDS ORDERED: Loratadine 10 MG TABLET PO SCH (09:00)
[2016-10-19 16:26] VITALS: BP 149/59
--- NOTE | 2016-10-19 17:48 | Discharge Summary ---
Date of Encounter: 10/19/16 Time of Encounter: 17:46 - Discharge Diagnosis (1) PAD (peripheral artery disease) Priority: Secondary Status: Chronic Comments: Patient has bilateral lower extremity claudication with bilateral superficial femoral artery disease. Once her carotid and coronary circulation are revascularized the patient will return for lower extremity interventions and bypass surgery. (2) Carotid artery disease Priority: Primary Status: Chronic Comments: Patient has significant carotid stenosis bilaterally 90% on the left and 80% on the right. Patient underwent a left carotid endarterectomy at this time. The patient had no periprocedural complications. The patient will require open heart bypass grafting and right carotid endarterectomy in the future. Qualifiers: Laterality: bilateral (3) CAD (coronary artery disease) Priority: Secondary Status: Chronic Comments: Patient has known triple artery disease by cardiac catheterization performed last week. Patient will need open heart bypass grafting in near future. Qualifiers: Coronary Disease-Associated Artery/Lesion type: [place] artery [place] vs. transplanted heart: [place] heart Associated angina: without angina Qualified Code(s): I25.10 - Atherosclerotic heart disease of [place] coronary artery without angina pectoris - Discharge Medications Prescriptions: HYDROcodone/Acet 5/325 mg [[place] 5-325 mg] 1 tab PO Q6HR PRN #14 tab PRN Reason: Moderate Pain Home Medications: ALPRAZolam [Xanax 0.25 MG Tablet] 0.25 mg PO BID PRN 09/23/16 [History] Allopurinol [Zyloprim 100 MG] 100 mg PO DAILY 09/23/16 [History] Aspirin [Lo-Dose Aspirin EC] 81 mg PO DAILY 09/23/16 [History] Clopidogrel [Plavix] 75 mg PO DAILY 09/23/16 [History] Loratadine [Claritin] 10 mg PO DAILY 09/23/16 [History] Metoprolol Tartrate [Lopressor] 50 mg PO BID 09/23/16 [History] Ramipril [Altace] 10 mg PO DAILY 09/23/16 [History] Ranitidine HCl [Heartburn Relief] 150 mg PO BID 09/23/16 [History] Ferrous Sulfate [Iron] 325 mg PO BID 10/18/16 [History] HYDROcodone/Acet 5/325 mg [[place] 5-325 mg] 1 tab PO Q6HR PRN #14 tab 10/19/16 [ Rx] Allergies/Adverse Reactions: 3 Allergy/AdvReac Type Severity Reaction Status Date / Time Amoxicillin Allergy Anaphylaxis Verified 10/18/16 10:03 guaifenesin Allergy Swelling Verified 10/18/16 10:03 of Lip/Tongue/Throat Sulfa (Sulfonamide Allergy Anaphylaxis Verified 10/18/16 10:03 Antibiotics) baclofen AdvReac See Verified 10/18/16 10:03 Comments doxycycline AdvReac Vomiting Verified 10/18/16 10:03 hydrochlorothiazide AdvReac See Verified 10/18/16 10:03 Comments Toltysb-Sbr-Abc Reductase AdvReac Muscle Pain Verified 10/18/16 10:03 Inhibitor [Statins] flu vaccine AdvReac See Uncoded 10/18/16 10:03 Comments Date of admission: 10/18/16 15:21 Primary care physician: Elpidio Ruggiero MD Consults: None Procedure(s) Performed: Left carotid endarterectomy with bovine pericardial patch angioplasty Discharging clinician: Dung Gerardo Anticipated date of discharge: 10/19/16 - Patient Status Disposition: Home, Self-Care Condition: Good Functional capacity at discharge: independent ambulation Overall status at discharge: patient is progressing back to baseline - Discharge Instructions Instructions: Carotid Endarterectomy (DC), Carotid Artery Disease (DC), Peripheral Vascular Disorders (DC) Follow Up With: Elpidio Ruggiero MD [Primary Care Provider] - 10/26/16 2:30 pm Dung Gerardo MD [Partnered Physician] - 11/09/16 2:45 pm Additional Instructions: If you have questions that are not answered by these instructions, please call your nurse or doctor. You have just had Carotid Endarterectomy surgery to remove harmful plaque from your carotid arteries. Risk Factors * If you smoke, STOP. Smoking or tobacco use significantly increases your risk of carotid artery disease because nicotine causes the arteries to narrow or constrict. It also causes fats to stick to th artery. Your chances of having a stroke are greatly increased if you continue to smoke. Fr more information call the patient education line for smoking cessation 6-746-FJIZ-NOW. Lifting * Do not lift anything over 5 pounds or a half (1/2) gallon of milk. * Do not strain or flex your neck backwards. Bathing * If you still have a neck dressing keep it clean and dry for 5 days. * It is okay to take a tub bath. Avoid soaking your incision. Activity * You may walk or climb stairs as tolerated * Use ice pack on left neck for the next 3 days. Driving * Do not drive until your follow-up appointment. Diet as tolerated Contact your doctor if: * Your neck feels swollen or you have trouble swallowing when you eat or drink. * Your incision becomes red or has yellow or green drainage (pus). * You develop a fever greater than 101 degrees. * If you have questions or concerns. Bleeding * Although the risks of bleeding is minimal, it can happen. If you have any bleeding, apply firm pressure over your incision site. If the bleeding does not stop call 911 and continue to hold pressure. DO NOT DRIVE YOURSELF to the hospital. * To prevent bleeding, apply pressure to the site for 2 days when coughing, sneezing or laughing. * * - Diet and Activity Activity: increase activity as tolerated Diet: low fat, low cholesterol - Hospital Course Hospital course: Ms. Mega Harkins is a 76 year old female With known multiple vascular bed vascular occlusive disease. She underwent a left carotid endarterectomy for 90% left internal carotid artery stenosis. 2 patient also has an 80% right internal carotid artery stenosis and a left vertebral artery occlusion. The patient had no periprocedural complications. She was neurologically intact postoperatively. She was judged fit for discharge on the afternoon of postoperative day #1. Instructions were given in regards to her diet and exercise and wound care. - Time Spent with Patient Total time spent providing and/or coordinating discharge services: Exam Vital Signs, Last 4 Hours Temp Pulse BP Pulse Ox 10/19/16 16:24 98.2 F 53 149/59 96 10/19/16 15:51 53 98 General: Present: Conversant, No Apparent Distress, Well developed, Well nourished HEENT: Present: Normocephaly, Trachea midline, Pupils equal Neck: Absent: JVD Cardiac: Present: Reg Rate and Rhythm, Normal S1 and S2 Lungs: Present: Normal Breath Sounds Neuro: Present: Alert and responsive, No focal deficits noted, Cranial nerves grossly intact, Motor nerves grossly intact, Sensory nerves grossly intact Vascular: Present: Surgical incisions (Left neck incision is clean and dry. Mild ecchymosis is present. Trachea is not deviated.) Skin: Present: No rashes noted on visualized skin - VTE Documentation of Mechanical Device: Intermittent pneumatic compression device
== END 2016-10-19 18:37 | disposition home or self-care (01) | DRG 39 ==
LOC: SAMDAY 09:17 → 2NNU 15:21
PROVIDERS: ADMIT Surgery Vascular Surgery; ATTEND Surgery Vascular Surgery

== ENCOUNTER 2016-11-15 06:25 | Inpatient (IN) ==
[2016-11-15] MEDS ORDERED: Nitroglycerin 25 MG/250 ML INFUS..BTL IVC ONE ×2 (06:40→12:55)
[2016-11-15] MEDS ORDERED: NiCARdipine 2.5 MG/10 ML Syringe IVPB ONE ×2 (06:41→11:48)
[2016-11-15] MEDS ORDERED: Clindamycin 900 MG/50 ML 900 MG/50 ML IV.SOLN IVPB ONE (06:43)
[2016-11-15] MEDS ORDERED: Famotidine 20 MG/2 ML VIAL ONE (06:45)
[2016-11-15] MEDS ORDERED: *HR* Etomidate 20 MG/10 ML AMPUL IVP ONE (06:45)
[2016-11-15] MEDS ORDERED: Protamine Sulfate 250 MG/25 ML VIAL IVP ONE (06:45)
[2016-11-15] MEDS ORDERED: Tranexamic Acid 1,000 MG/10 ML VIAL ONE ×2 (06:45→10:30)
[2016-11-15] MEDS ORDERED: Albuterol 2.5 MG/3 ML NEBULIZER IH ONE (06:45)
[2016-11-15] MEDS ORDERED: *HR* Rocuronium Bromide 50 MG/5 ML VIAL ONE (06:46)
[2016-11-15] MEDS ORDERED: *HR* Phenylephrine 10 MG/ML VIAL ONE (06:46)
[2016-11-15] MEDS ORDERED: *HR* FentaNYL (PF) 1,000 MCG/20 ML VIAL ONE (06:56)
[2016-11-15] MEDS ORDERED: *HR* Midazolam HCl 5 MG/5 ML VIAL IVP ONE (06:56)
[2016-11-15] MEDS: Chlorhexidine Rinse 15 ML MOUTHWASH MM SCH ×2 (07:06→22:21)
[2016-11-15] MEDS: Plasma-Lyte A (PH 7.4) 1,000 ML IVC SCH (07:06)
--- NOTE | 2016-11-15 07:15 | History & Physical Report ---
Date of Encounter: 11/15/16 Time of Encounter: 07:15 24 Hour HP Update - Instructions Instructions: If the History and Physical is less than 30 days old and was completed prior to A.M. admission and or procedure and has NOT been updated on calendar day of procedure please complete this update prior to performing procedure. - Update Patient reports changes in Medical Condition: No Changes in examination, assessment, or condition: No Changes in Medication: No Preop tests/diagnostics Reviewed: Yes Pre-Op MRSA Screen: Negative Surgery Remains Indicated: Yes Consent for Planned Operative Procedure(s) Verified: Yes - Pre-Operative Checklist Preoperative Checklist Indicated: No Prophylactic Antibiotic Ordered: Yes Home Medications Include Beta Tong: Yes Beta Tong Taken Today (Day of Surgery): Yes Beta Tong Taken Yesterday (Day Prior to Surgery): Yes Is VTE Prophylaxis Indicated?: NO
--- NOTE | 2016-11-15 07:20 | Anesthesia Evaluation PreOp ---
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: Denies Any Significant HX Other Medical History: Denies Any Significant HX Anesthesia History: No Prior Anesthetic Complications (PONV-severe), Past Anesthesia (left CEA), Problems Alcohol Use: none Drug use: none Medications and Allergies ALPRAZolam [Xanax 0.25 MG Tablet] 0.25 mg PO BID PRN 09/23/16 [History] Allopurinol [Zyloprim 100 MG] 100 mg PO DAILY 09/23/16 [History] Aspirin [Lo-Dose Aspirin EC] 81 mg PO DAILY 09/23/16 [History] Clopidogrel [Plavix] 75 mg PO DAILY 09/23/16 [History] Loratadine [Claritin] 10 mg PO DAILY 09/23/16 [History] Metoprolol Tartrate [Lopressor] 50 mg PO BID 09/23/16 [History] Ramipril [Altace] 10 mg PO DAILY 09/23/16 [History] Ranitidine HCl [Heartburn Relief] 150 mg PO BID 09/23/16 [History] Ferrous Sulfate [Iron] 325 mg PO BID 10/18/16 [History] HYDROcodone/Acet 5/325 mg [[place] 5-325 mg] 1 tab PO Q6HR PRN #14 tab 10/19/16 [ Rx] 3 Allergy/AdvReac Type Severity Reaction Status Date / Time Amoxicillin Allergy Anaphylaxis Verified 10/18/16 10:03 guaifenesin Allergy Swelling Verified 10/18/16 10:03 of Lip/Tongue/Throat Sulfa (Sulfonamide Allergy Anaphylaxis Verified 10/18/16 10:03 Antibiotics) baclofen AdvReac See Verified 10/18/16 10:03 Comments doxycycline AdvReac Vomiting Verified 10/18/16 10:03 hydrochlorothiazide AdvReac See Verified 10/18/16 10:03 Comments Vkrfntx-Luj-Ddt Reductase AdvReac Muscle Pain Verified 10/18/16 10:03 Inhibitor [Statins] flu vaccine AdvReac See Uncoded 10/18/16 10:03 Comments - Meds/Allergy Pre-op Review Medications Reviewed: Yes Allergies Reviewed: Yes Beta Blockers on Current Med List: Yes Anesthesia Results - Imaging EKG: report reviewed (SINUS RHYTHM WITH FIRST DEGREE AV BLOCK WITH OCCASIONAL VENTRICULAR PREMATURE COMPLEXES INFERIOR MYOCARDIAL INFARCTION, PROBABLY OLD) Additional studies: cath: There is severe three vessel coronary artery disease 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 Cardiovascular - heart team consultation with Dr. Julio and Dr. Gerardo during time of cardiac catheterization. As plan is to provide complete revascularization (specifically RCA), CABG is preferred over multivessel PCI. Discussed timing of CABG and CEA (see below). Anesthesia Exam Selected Entries 11/15/16 06:58 Temperature 98.3 F Pulse Rate 51 Respiratory Rate 18 Blood Pressure 169/70 O2 Sat by Pulse Oximetry 97 Weight: 77kg NPO (# of Hours): 8 Pain Scale: 0 Pain Scale Used: Numeric (1 - 10) - HEENT Pupil (Motor): EOMI Mallampati: II Teeth: Edentulous Oral Opening: Greater than 3 - IRS AGENT LOC: Oriented IRS AGENT Motor: Normal RUE, Normal LUE, Normal RLE, Normal LLE, Normal Face IRS AGENT Sensory: Normal: RUE, LUE, RLE, LLE, Face (wears hearing aides) - Cardiac Rhythm: Regular Murmur: None - Pulmonary Breath Sounds: bilateral Clear Respiratory Effort: Symmetrical Anesthesia Assess/Plan ASA Score: 4 Modified Pamela Scale for Level of Consciousness: Cooperative, oriented, and tranquil Anesthetic Plan: General Monitoring Plan: Standard Monitors, A-Line, PAC, SANDI Recovery Plan: ICU (discussed risks of GA, lines, SANDI and blood products. Questions answered and agreesto proceed)
[2016-11-15] MEDS ORDERED: Mannitol 25% vial 12.5 GM/50 ML VIAL IVP ONE (08:16)
[2016-11-15] MEDS ORDERED: *HR* Heparin 10,000 UNIT/10 ML VIAL IV ONE (08:16)
[2016-11-15] MEDS ORDERED: *HR* Phenylephrine 10 MG/ML VIAL IVC ONE (08:16)
[2016-11-15] MEDS ORDERED: Albumin Human 25% 25 GM/100 ML IV.SOLN IV ONE (08:16)
[2016-11-15] MEDS ORDERED: Tranexamic Acid 1,000 MG/10 ML VIAL IV ONE (08:16)
[2016-11-15] MEDS ORDERED: Sodium Bicarbonate 50 MEQ/50 ML VIAL IVC ONE (08:16)
[2016-11-15] MEDS ORDERED: Clindamycin 600 MG/50 ML IV.SOLN IVPB ONE (08:16)
[2016-11-15] MEDS ORDERED: *HR* Magnesium Sulfate 2 GM/50 ML PIGGYBACK IVPB ONE (08:16)
[2016-11-15] MEDS ORDERED: Lidocaine 2% Syringe 100 MG/5 ML IV ONE (08:16)
--- NOTE | 2016-11-15 09:26 | Anesthesia Procedures ---
Date of Encounter: 11/15/16 Time of Encounter: 08:10 Procedures: Anesthesia - Arterial Line Consent obtained: written consent Time out performed: Yes Sedation: Versed (mg): 2 Sedation: Fentanyl (mcg): 100 Supplemental Oxygen via Nasal Cannula (L/min): 2 Local Anesthetic: Lidocaine 1% Amount of Anesthetic used (mls): 1 Size (Gauge): 20 Length (inches): 5 Technique Used: sterile prep, guide wire technique, direct puncture technique Post-Procedure: line sutured into place, line taped into place, dry sterile dressing placed Patient tolerated procedure: well, no complications Complications: none Site: Radial L (easy, attempt x 1) - Central Line Placement Right SC Consent obtained: written consent Time out performed: Yes Patient placed on monitor/pulse ox: Yes prep: mask, gown, gloves Central line prep: Chlorhexidine scrub Ultrasound used for placement: No Technique: Seldinger Lumen Inserted: Introducer Post procedure: sutured in place, good blood return, sterile dressing applied Patient tolerated procedure: well, no complications Comments: attempted right IJ x3, needle placed in carotid x 2. Hematoma developed and unable to visualize IJ. Elected to place introducer in the right subclavian due to recent carotid surgery on left. Placed introducer easily without US. [place] placed without arrythmias and wedge at approx 45cm
[2016-11-15] MEDS ORDERED: Dexamethasone 4 MG/ML VIAL ONE (10:56)
[2016-11-15] MEDS ORDERED: Ondansetron 4 MG/2 ML VIAL ONE (10:56)
--- NOTE | 2016-11-15 11:49 | Operative Note ---
Date of procedure: 11/15/16 Pre-op diagnosis: CAD with unstable angina. Post-op diagnosis: same Procedure: 1. CABG 2 (WOOD to LAD, SVG to OM1). 2. Endoscopic vein harvesting, greater saphenous vein from right lower extremity. Implants: None. Complications: None. Anesthesia: GETA Surgeon: Evelyn Julio Public Relations Director: [place] Specimen: None. Condition: stable Disposition: ICU Procedure in Detail: INDICATIONS FOR OPERATION: The patient is a 76-year-old hypertensive lady with hypercholesterolemia, known coronary artery disease, known cerebrovascular disease, and known peripheral arterial disease. The patient was found to have bilateral carotid artery bruits for her primary care physician. Her cardiac history dates back 24 years ago at which time she suffered a myocardial infarction. She did well until 2003 when she suffered another myocardial infarction and at that time underwent percutaneous catheter intervention and stent placement x2. The patient has dense in both the LCx and RCA, which is completely occluded. She was referred for vascular consultation and a carotid duplex revealed bilateral carotid artery stenosis. The left internal carotid artery had a 80-99% stenosis in the right internal carotid artery had a 60-79% stenosis. Prior to her bilateral carotid endarterectomies, she underwent a cardiac catheterization to rule out concomitant coronary artery disease. This revealed severe three-vessel CAD and an LVEF 40-45%. In particular the patient had a 70% proximal LAD lesion, a 70% proximal LCx lesion, a 50 to 60s percent proximal OM1 lesion, and a completely occluded proximal RCA. It was determined that the patient should undergo an endarterectomy prior to CABG given the severity of the lesion. At that time the patient was asymptomatic with regards to coronary artery disease. Several days ago the patient developed exertional substernal chest pain and shortness of breath. The symptoms are also precipitated by anxiety. She saw Dr. Dung Gerardo in the office on Wednesday, November 09, 2016, who referred her for urgent CABG evaluation. Unfortunately the patient had been on long-term Plavix for antiplatelet therapy and this medication was discontinued for 5 days prior to CABG. FINDINGS AT OPERATION: The aorta was of normal caliber and had distal calcification in the transverse aorta and branch vessels. Aorta in the ascending portion was slightly thickened , but did not have appreciable calcification. The coronary arteries most proximal 1.5-2 mm in diameter and had mild distal disease, with the exception of the RCA which was small and diffusely calcified. The greater saphenous vein was harvested endoscopically from the right lower extremity from the knee to the groin was of good quality. The total bypass time was 3 minutes, cross-clamp time 21 minutes, intentional hypothermia to 34C. DESCRIPTION OF OPERATION: After obtaining informed consent from the patient, she was taken to the operating room where satisfactory general endotracheal anesthetic was induced. Appropriate monitoring lines were placed, the patient's chest, abdomen, and lower extremities were prepped and draped in a sterile fashion. The greater saphenous vein was harvested endoscopically from the right lower extremity from the knee to the groin. The vein was removed, distended, and found to be of good quality. Simultaneously, a standard median sternotomy incision was made and the sternum divided. The WOOD was taken down from its bed and side branches divided between hemoclips. The sternum was and the pericardium opened and reflected laterally. The patient was prepared for cannulation by placing pursestring sutures the distal ascending aorta, mid-ascending aorta, and right atrial appendage. The patient was heparinized and when the ACT was greater then 200 seconds, the distal ascending aorta was cannulated followed by placement of a dual stage venous cannula through the right atrial appendage and into the inferior vena cava. A stab-in antegrade metabolic cannula was placed in the mid- ascending aorta. The patient was placed on bypass and the temperature allowed to drift to 34C. The distal targets were identified and the aorta was crossclamped. The patient received 700 mL of cold antegrade crystalloid cardioplegia through the aortic root and the patient's heart obtained a rapid diastolic arrest. The PDA was again evaluated and found to be too small and too diseased for bypass. The OM1 branch was opened. Blade and the vein was anastomosed in end-to- side fashion using running 7-0 Prolene suture. The anastomosis was found to be hemostatic. The LAD was opened with a Tribe blade and the WOOD was anastomosed in an end-to-side fashion to the aorta using a running 7-0 Prolene suture. The mammary pedicle was tacked to the epicardium using interrupted 5-0 silk suture. Rewarming was begun during this anastomosis. Aortic cross-clamp was released and the heart distended. The vein was measured and cut at appropriate length. A partial occlusion clamp was placed across the mid-ascending aorta and the antegrade metabolic cannula was removed. The aortotomy site was enlarged with a 4 mm punch and the vein was anastomosed in end-to-side fashion to the aorta using a running 5-0 Prolene suture. The vein graft was occluded with a bulldog clamp and de-aired the 25-gauge needle prior to removing the partial occluding clamp. The proximal and distal anastomoses were found to be hemostatic, and the proximal anastomosis was marked with a radiopaque loop. Two right ventricular temporary epicardial pacing leads were placed, and 3 chest tubes were placed, 2 in the mediastinum and one into the left pleural space. During rewarming the patient's heart regained normal sinus rhythm spontaneously. When the patient's systemic temperature reached 36C, she was ventilated and received volume. She was weaned from bypass required no inotropic support. Protamine was administered and the aortic and venous cannulas were removed. The pursestring sutures were secured and the venous cannulation site was reinforced with a 4-0 Prolene suture. Pericardium was loosely reapproximated in the midline and the sternum was reapproximated using sternal wires. The pectoralis major fascia, rectus abdominis fascia, subcutaneous tissue, and skin edges were reapproximated using running Vicryl sutures. Sterile dressings were applied. The patient was transferred to the ICU in satisfactory postoperative condition. There were no intraoperative complications, and the instrument, needle, and sponge count were correct at end of operation. - Open Heart Detail JARED (Internal Mammary Artery) Usage: Yes Cardiopulmonary Bypass Time (mins): 43 Aortic Cross Clamp Time (mins): 21 Intentional Hypothermia Temperature (C.): 34
[2016-11-15] MEDS ORDERED: Calcium Chloride 1,000 MG in 0.9 % Sodium Chloride 100 ML IVPB PRN (11:50)
[2016-11-15] MEDS ORDERED: Naloxone 0.4 MG/ML INJ IVP PRN (11:50)
[2016-11-15] MEDS ORDERED: *HR* Dextrose 50 % in Water (Syg) 50 ML SYRINGE IVP PRN (11:50)
[2016-11-15] MEDS ORDERED: *HR* Morphine 2 MG/ML SYRINGE IVP PRN (11:50)
[2016-11-15] MEDS ORDERED: *HR* OxyCODONE/APAP 5/325 TABLET PO PRN (11:50)
[2016-11-15] MEDS ORDERED: Potassium Chloride 40 MEQ/200 ML BAG IVPB PRN (11:50)
[2016-11-15] MEDS ORDERED: Acetaminophen 650 MG RECTAL SUPP RC PRN (11:50)
[2016-11-15] MEDS ORDERED: Magnesium Sulfate 2 GM in D5% in Water 100 ML IVPB PRN (11:50)
[2016-11-15] MEDS ORDERED: Insulin Regular, Human 100 UNIT/ML IV PRN (11:50)
[2016-11-15] MEDS ORDERED: Acetaminophen 325 MG TABLET PO PRN (11:50)
[2016-11-15] MEDS ORDERED: Albumin Human 5% 25.0 GM/500 ML VIAL ONE (12:15)
[2016-11-15 12:26] LABS: ABG Base Excess 1.3 mEq/L (-2.0 to 3.0); ABG HCO3 24 mEq/L (21-27); ABG Oxygen Saturation 96 % (95-98); ABG PCO2 32 mmHg (35-45); ABG PH 7.49 pH Units (7.32-7.45); ABG PO2 75 mmHg (85-104); ABG TCO2 25 mEq/L (20-26); Blood Gas FiO2 50 %; Blood Gas Modality ASSIST CONTROL
[2016-11-15 12:28] LABS: Hematocrit 31.9 % (35.3-44.9); Hemoglobin 10.6 g/dL (11.5-15.4); Immature Platelets 9.5 % (1.1-6.1); Mean Corpuscular HGB Conc 33.2 g/dL (31.6-35.5); Mean Corpuscular Hemoglobin 29.4 pg (28.0-33.3); Mean Corpuscular Volume 88.4 fL (83.0-100.0); Mean Platelet Volume 11.7 fL (9.4-12.4); Platelet Count 85 K/mcL (140-400); Red Blood Count 3.61 M/mcL (3.82-4.97); Red Cell Distribution Width 14.2 % (11.5-14.5)
[2016-11-15 12:31] LABS: INR 1.5
[2016-11-15 12:33] LABS: Activated Partial Thrombo Time 30.4 Seconds (26.0-36.0)
[2016-11-15 12:39] LABS: BUN/Creatinine Ratio 20 (6-26); Blood Urea Nitrogen 18 mg/dL (7-20); Calcium 8.3 mg/dL (8.6-10.8); Carbon Dioxide 20 mEq/L (19-29); Chloride 108 mEq/L (98-109); Glucose 97 mg/dL (70-99); Magnesium 2.4 mg/dL (1.6-2.6); Osmolality,Calculated 288 (280-300); Sodium 138 mEq/L (136-145); eGFR For African Americans > 60 (> 60); eGFR For Non-African Americans > 60 (> 60)
[2016-11-15] MEDS: 0.9 % Sodium Chloride w KCl 20 MEQ/1,000 ML MLS IVC SCH (13:05)
[2016-11-15 13:06] LABS: Lymphocytes # 3.3 K/mcL (0.6-4.6); Neutrophils # 8.6 K/mcL (1.6-8.9); Platelet Estimate Decreased (Normal)
[2016-11-15] MEDS: *HR* Morphine 2 MG/ML SYRINGE IVP PRN ×2 (13:10→21:09)
[2016-11-15] MEDS: Metoclopramide 10 MG/2 ML VIAL IVP SCH ×3 (13:19→23:55)
[2016-11-15] MEDS: niCARdipine 40 MG/200 ML MLS IVC SCH ×2 (13:39→22:17)
[2016-11-15 14:56] LABS: ABG Base Excess -1.2 mEq/L (-2.0 to 3.0); ABG Glucose 89 mg/dL (60-95); ABG HCO3 27 mEq/L (21-27); ABG Ionized Calcium 1.23 mmol/L (1.15-1.35); ABG Oxygen Saturation 100 % (95-98); ABG PCO2 58 mmHg (35-45); ABG PH 7.27 pH Units (7.32-7.45); ABG PO2 223 mmHg (85-104); ABG TCO2 28 mEq/L (20-26)
[2016-11-15 14:58] LABS: ABG HCO3 22 mEq/L (21-27); ABG PCO2 35 mmHg (35-45); ABG PO2 176 mmHg (85-104); ABG TCO2 23 mEq/L (20-26)
[2016-11-15 14:59] LABS: ABG Base Excess -2.7 mEq/L (-2.0 to 3.0); ABG Glucose 106 mg/dL (60-95); ABG Ionized Calcium 1.04 mmol/L (1.15-1.35); ABG Oxygen Saturation 100 % (95-98)
[2016-11-15] MEDS: Insulin Human Regular 100 UNIT in 0.9 % Sodium Chloride 100 ML IVC SCH (14:59)
[2016-11-15 15:01] LABS: ABG Base Excess -0.3 mEq/L (-2.0 to 3.0); ABG Glucose 139 mg/dL (60-95); ABG HCO3 23 mEq/L (21-27); ABG Ionized Calcium 0.94 mmol/L (1.15-1.35); ABG Oxygen Saturation 100 % (95-98); ABG PCO2 31 mmHg (35-45); ABG PH 7.48 pH Units (7.32-7.45); ABG PO2 431 mmHg (85-104); ABG TCO2 24 mEq/L (20-26)
[2016-11-15 15:04] LABS: ABG HCO3 24 mEq/L (21-27); ABG PCO2 34 mmHg (35-45); ABG PH 7.46 pH Units (7.32-7.45); ABG PO2 429 mmHg (85-104)
[2016-11-15 15:05] LABS: ABG Base Excess 0.5 mEq/L (-2.0 to 3.0); ABG Glucose 143 mg/dL (60-95); ABG Oxygen Saturation 100 % (95-98); ABG TCO2 25 mEq/L (20-26)
[2016-11-15 15:11] LABS: ABG HCO3 22 mEq/L (21-27); ABG PCO2 32 mmHg (35-45); ABG PH 7.44 pH Units (7.32-7.45); ABG PO2 186 mmHg (85-104)
[2016-11-15 15:12] LABS: ABG Base Excess -2.1 mEq/L (-2.0 to 3.0); ABG Oxygen Saturation 100 % (95-98); ABG TCO2 23 mEq/L (20-26)
[2016-11-15 15:13] LABS: ABG Glucose 139 mg/dL (60-95)
[2016-11-15 15:14] LABS: ABG Ionized Calcium 1.18 mmol/L (1.15-1.35)
[2016-11-15] MEDS ORDERED: 0.9 % Sodium Chloride 250 ML ONE (15:21)
[2016-11-15 17:00] LABS: ABG Base Excess -5.2 mEq/L (-2.0 to 3.0); ABG HCO3 20 mEq/L (21-27); ABG Oxygen Saturation 95 % (95-98); ABG PCO2 37 mmHg (35-45); ABG PH 7.34 pH Units (7.32-7.45); ABG PO2 79 mmHg (85-104); ABG TCO2 21 mEq/L (20-26)
[2016-11-15] MEDS: Ondansetron 4 MG/2 ML VIAL IVP PRN (17:19)
[2016-11-15] MEDS: Clindamycin 900 MG/50 ML 900 MG/50 ML IV.SOLN IVPB SCH ×2 (17:36→23:55)
[2016-11-15 18:17] LABS: Basophils % 0.4 %; Mean Platelet Volume 12.8 fL (9.4-12.4); Segmented Neutrophils % 87.4 %
[2016-11-15 18:18] LABS: Basophils # 0.1 K/mcL (0.0-0.2); Eosinophils # 0.1 K/mcL (0.0-0.6); Eosinophils % 0.3 %; Hematocrit 34.7 % (35.3-44.9); Hemoglobin 11.7 g/dL (11.5-15.4); Immature Granulocytes % 0.8 % (0-4); Lymphocytes # 1.3 K/mcL (0.6-4.6); Lymphocytes % 5.1 %; Mean Corpuscular HGB Conc 33.7 g/dL (31.6-35.5); Mean Corpuscular Hemoglobin 30.2 pg (28.0-33.3); Mean Corpuscular Volume 89.4 fL (83.0-100.0); Monocytes # 1.5 K/mcL (0.0-1.3); Neutrophils # 22.2 K/mcL (1.6-8.9); Platelet Count 118 K/mcL (140-400); Red Blood Count 3.88 M/mcL (3.82-4.97); Red Cell Distribution Width 14.6 % (11.5-14.5)
[2016-11-15 18:26] LABS: Calcium 8.6 mg/dL (8.6-10.8); Potassium 3.8 mEq/L (3.5-4.5)
[2016-11-15 19:03] LABS: Platelet Estimate Normal (Normal)
[2016-11-15] MEDS: Norepinephrine 4 MG in D5% in Water 250 ML IVC SCH (19:27)
[2016-11-15 19:41] LABS: ABG Base Excess -5.6 mEq/L (-2.0 to 3.0); ABG HCO3 21 mEq/L (21-27); ABG Oxygen Saturation 95 % (95-98); ABG PCO2 43 mmHg (35-45); ABG PO2 86 mmHg (85-104); ABG TCO2 22 mEq/L (20-26)
[2016-11-15 19:42] LABS: Blood Gas Modality CPAP
[2016-11-15 19:43] LABS: ABG PH 7.29 pH Units (7.32-7.45)
[2016-11-15 20:30] LABS: ABG Base Excess -4.7 mEq/L (-2.0 to 3.0); ABG HCO3 21 mEq/L (21-27); ABG Oxygen Saturation 97 % (95-98); ABG PCO2 41 mmHg (35-45); ABG PO2 95 mmHg (85-104); ABG TCO2 22 mEq/L (20-26)
[2016-11-15 20:32] LABS: ABG PH 7.32 pH Units (7.32-7.45)
[2016-11-15 20:33] LABS: Blood Gas Modality CPAP; Blood Gas PEEP 5 cm H2O
[2016-11-16 04:13] LABS: Basophils % 0.1 %; Hematocrit 29.8 % (35.3-44.9)
[2016-11-16 04:15] LABS: Hemoglobin 9.8 g/dL (11.5-15.4); Immature Granulocytes % 0.7 % (0-4); Immature Platelets 13.2 % (1.1-6.1); Lymphocytes # 0.7 K/mcL (0.6-4.6); Lymphocytes % 4.9 %; Mean Corpuscular HGB Conc 32.9 g/dL (31.6-35.5); Mean Corpuscular Hemoglobin 29.4 pg (28.0-33.3); Mean Corpuscular Volume 89.5 fL (83.0-100.0); Mean Platelet Volume 11.8 fL (9.4-12.4); Monocytes # 1.3 K/mcL (0.0-1.3); Monocytes % 8.9 %; Neutrophils # 12.6 K/mcL (1.6-8.9); Platelet Count 101 K/mcL (140-400); Red Blood Count 3.33 M/mcL (3.82-4.97); Red Cell Distribution Width 14.9 % (11.5-14.5); Segmented Neutrophils % 85.4 %
[2016-11-16 04:16] LABS: INR 1.2; Prothrombin Time 12.8 Seconds (9.4-12.1)
[2016-11-16] MEDS: *HR* Morphine 2 MG/ML SYRINGE IVP PRN (04:17)
[2016-11-16 04:24] LABS: Calcium 8.4 mg/dL (8.6-10.8); Magnesium 2.3 mg/dL (1.6-2.6)
[2016-11-16 04:25] LABS: Potassium 5.5 mEq/L (3.5-4.5)
[2016-11-16] MEDS: Metoclopramide 10 MG/2 ML VIAL IVP SCH ×3 (05:58→23:28)
[2016-11-16] MEDS: Plasma-Lyte A (PH 7.4) 1,000 ML IVC SCH (07:43)
--- NOTE | 2016-11-16 08:06 | Cardiothoracic Progress Note ---
Date of Encounter: 11/16/16 Time of Encounter: 08:04 - Assessment and plan (1) CAD (coronary artery disease) Current Visit: No Status: Chronic The patient is recovering well from her CABG2. She is currently extubated and breathing comfortably. The arterial line, Betancourt catheter, Grafton-Juliano catheter be removed. She will be transferred to the stepdown unit when a bed is available. The assessment and plan as outlined above was discussed with the patient and/or family members who expressed understanding and agreement. All questions were answered. Qualifiers: Coronary Disease-Associated Artery/Lesion type: [place] artery [place] vs. transplanted heart: [place] heart Associated angina: without angina Qualified Code(s): I25.10 - Atherosclerotic heart disease of [place] coronary artery without angina pectoris - Subjective Procedure(s) Performed: POD#1 S/P CABG2 Interval history: The patient remained hemodynamically stable overnight. She is currently extubated and breathing comfortably. She has no complaints and no obvious neurologic deficits. Vital Signs, Last 4 Hours Temp Pulse Resp BP Pulse Ox 11/16/16 07:41 16 100 11/16/16 07:31 99.2 F 11/16/16 07:00 65 12 132/50 99 11/16/16 06:00 75 16 136/51 97 11/16/16 05:00 73 12 128/45 99 Oxgyen Flow Rate Oxygen Flow Rate (LPM) 2 Clinical Data, last 8 Hours Output, Chest Tube Drainage 20 Amount [Mediastinal #2] Output, Chest Tube Drainage 80 Amount [Mediastinal #2] Output, Chest Tube Drainage 20 Amount [Mediastinal #2] Output, Chest Tube Drainage 20 Amount [Mediastinal #2] Output, Chest Tube Drainage 10 Amount [Mediastinal #2] Output, Chest Tube Drainage 20 Amount [Mediastinal #2] Output, Chest Tube Drainage 10 Amount [Mediastinal #1] Output, Chest Tube Drainage 20 Amount [Mediastinal #1] Output, Chest Tube Drainage 20 Amount [Mediastinal #1] Output, Chest Tube Drainage 30 Amount [Mediastinal #1] Output, Chest Tube Drainage 20 Amount [Mediastinal #1] Output, Chest Tube Drainage 15 Amount [Mediastinal #1] Weight 11/14/16 11/15/16 11/16/16 23:59 23:59 23:59 Weight 76.204 kg - Physical Examination General: Conversant, No Apparent Distress Neck: No JVD, Normal carotid pulses Cardiac: Reg Rate and Rhythm, Normal S1 and S2, No Murmur Incision: No signs of infection, Dry/intact dressing Sternum: Stable Chest tubes: Minimal drainage, Other (No air leak.) Lungs: Normal Breath Sounds, No Wheeze, Rales, Rhonchi Neuro: Alert and responsive, No focal deficits noted, Motor nerves intact, Sensory nerves intact Vascular: Normal capillary refill Extremities: No Clubbing, No Cyanosis, No Edema - Labs 11/16/16 04:05 11/16/16 04:05 Lab Results, Last 24 hours 11/15/16 11/15/16 11/15/16 12:08 12:08 12:08 WBC 11.9 H D Hgb 10.6 L Hct 31.9 L Plt Count 85 L D INR 1.5 APTT 30.4 Sodium 138 Potassium 4.0 Chloride 108 Carbon Dioxide 20 BUN 18 Creatinine 0.89 Glucose 97 Calcium 8.3 L Magnesium 2.4 11/15/16 11/15/16 11/16/16 16:50 16:50 04:05 WBC 25.4 H D 14.7 H Hgb 11.7 9.8 L D Hct 34.7 L 29.8 L Plt Count 118 L 101 L INR APTT Sodium 137 Potassium 3.8 Chloride 106 Carbon Dioxide 19 BUN 18 Creatinine 1.15 H Glucose 197 H Calcium 8.6 Magnesium 11/16/16 11/16/16 04:05 04:05 WBC Hgb Hct Plt Count INR 1.2 APTT 26.0 Sodium 138 Potassium 5.5 H D Chloride 109 Carbon Dioxide 21 BUN 22 H Creatinine 1.22 H Glucose 122 H Calcium 8.4 L Magnesium 2.3 - Imaging Chest Xray: image reviewed (No pneumothorax. Small left pleural effusion.) - VTE Reasons for not Prescribing Prophylaxis: Medical contraindication Documentation of Mechanical Device: Graduated compression elastic hosiery Consult Discharge Plan - Plan Referrals: Elpidio Ruggiero MD [Primary Care Provider] -
[2016-11-16] MEDS ORDERED: Aspirin Enteric Coated 81 MG Tablet PO SCH (09:00)
[2016-11-16] MEDS ORDERED: Chlorhexidine Rinse 15 ML MOUTHWASH MM SCH (09:00)
[2016-11-16] MEDS ORDERED: Furosemide 20 MG/2 ML VIAL IVP SCH (09:00)
[2016-11-16] MEDS ORDERED: Pantoprazole 40 MG VIAL IVP SCH (09:00)
[2016-11-16] MEDS: 0.9 % Sodium Chloride w KCl 20 MEQ/1,000 ML MLS IVC SCH (09:04)
[2016-11-16] MEDS: niCARdipine 40 MG/200 ML MLS IVC SCH ×2 (09:04→12:27)
[2016-11-16] MEDS: Ondansetron 4 MG/2 ML VIAL IVP PRN (09:28)
--- NOTE | 2016-11-16 10:50 | Anesthesia Evaluation Post Op ---
Date of Encounter: 11/16/16 Time of Encounter: 10:00 - Vital Signs Vital Signs: Selected Entries 11/16/16 09:00 Pulse Rate 76 Respiratory Rate 18 Blood Pressure 119/45 O2 Sat by Pulse Oximetry 96 Oxygen Flow Rate (LPM) 2 Oxygen Delivery Method Nasal Cannula - Lungs Lungs: Clear Ascult./Percussion - Airway Airway: Non-obstructed - Cardiovascular Regular Rate - Mental Status Mental Status: Alert & Oriented, Answers Appropriately - Pain Pain Scale: 3 Pain Scale used: Numeric (1 - 10) - Nausea Vomiting Nausea Vomiting: Present (gets some relief with iv Zofran) - Hydration Hydration: Tolerates oral liquids, Betancourt catheter - Discharge PostOp Status: Transfer Patient to floor (Patient without apparent anesthesia complications except nausea. On po meds now. Will be transferred out to floor today)
[2016-11-16] MEDS: Insulin Human Regular 100 UNIT in 0.9 % Sodium Chloride 100 ML IVC SCH (12:28)
[2016-11-16] MEDS: Norepinephrine 4 MG in D5% in Water 250 ML IVC SCH (12:28)
[2016-11-16] MEDS ORDERED: *HR* Dextrose 50 % in Water (Syg) 50 ML SYRINGE IVP PRN (12:29)
[2016-11-16] MEDS ORDERED: *HR* Morphine 2 MG/ML SYRINGE IVP PRN ×2 (12:29)
[2016-11-16] MEDS ORDERED: ALPRAZolam 0.25 MG TABLET PO PRN (12:29)
[2016-11-16] MEDS ORDERED: D5% in Water 1,000 ML IVC PRN (12:29)
[2016-11-16] MEDS ORDERED: Dextrose Gel 15 GM PO PRN ×2 (12:29)
[2016-11-16] MEDS ORDERED: Naloxone 0.4 MG/ML INJ IVP PRN (12:29)
[2016-11-16] MEDS ORDERED: Insulin Regular, Human 100 UNIT/ML IV PRN (12:29)
[2016-11-16] MEDS ORDERED: Ondansetron 4 MG/2 ML VIAL IVP PRN (12:29)
[2016-11-16] MEDS ORDERED: Acetaminophen 325 MG TABLET PO PRN (12:29)
[2016-11-16] MEDS: Insulin LISPRO 300 UNITS/3 ML VIAL SQ SCH ×3 (13:50→21:29)
[2016-11-16] MEDS: Loratadine 10 MG TABLET PO SCH (16:00)
[2016-11-16] MEDS: *HR* Heparin 5,000 UNIT/ML VIAL SQ SCH ×2 (16:04→18:13)
--- NOTE | 2016-11-16 18:31 | Electrocardiograph Report ---
[address] [place] [address] Test Date: 2016-11-15 Pat Name: Ira Harkins Department: 109 Room: 2N04 Gender: F Correctional Case Manager: MARIA FERNANDA : 1940 Requested By: Evelyn Julio Order Number: [id number] Reading MD: Jonathon Sal MD Measurements Intervals [place] Rate: 59 P: 54 VA: 229 QRS: 4 QRSD: 92 T: 17 QT: 452 QTc: 451 Interpretive Statements SINUS BRADYCARDIA WITH FIRST DEGREE AV BLOCK INFERIOR MYOCARDIAL INFARCTION, PROBABLY OLD Electronically Signed On 11-16-2016 18:30:19 EDT by Jonathon Sal MD
[2016-11-16] MEDS: Furosemide 20 MG/2 ML VIAL IVP SCH (20:26)
[2016-11-16] MEDS: *HR* OxyCODONE/APAP 5/325 TABLET PO PRN (20:26)
[2016-11-17 05:09] LABS: Basophils % 0.2 %; Hemoglobin 8.6 g/dL (11.5-15.4); Immature Granulocytes % 0.7 % (0-4); Mean Corpuscular Volume 91.2 fL (83.0-100.0)
[2016-11-17 05:11] LABS: Hematocrit 26.8 % (35.3-44.9); Immature Platelets 16.3 % (1.1-6.1); Lymphocytes # 1.6 K/mcL (0.6-4.6); Lymphocytes % 10.3 %; Mean Corpuscular HGB Conc 32.1 g/dL (31.6-35.5); Mean Corpuscular Hemoglobin 29.3 pg (28.0-33.3); Mean Platelet Volume 12.2 fL (9.4-12.4); Monocytes # 1.6 K/mcL (0.0-1.3); Monocytes % 10.5 %; Neutrophils # 11.8 K/mcL (1.6-8.9); Red Blood Count 2.94 M/mcL (3.82-4.97); Segmented Neutrophils % 78.3 %
[2016-11-17 05:24] LABS: Platelet Count 86 K/mcL (140-400)
[2016-11-17 05:25] LABS: Calcium 8.9 mg/dL (8.6-10.8); Potassium 4.6 mEq/L (3.5-4.5)
[2016-11-17] MEDS: Metoclopramide 10 MG/2 ML VIAL IVP SCH ×3 (06:17→17:23)
[2016-11-17] MEDS: *HR* Heparin 5,000 UNIT/ML VIAL SQ SCH ×2 (06:17→17:23)
[2016-11-17] MEDS: Furosemide 20 MG/2 ML VIAL IVP SCH ×2 (07:40→21:13)
[2016-11-17] MEDS: Loratadine 10 MG TABLET PO SCH (07:40)
[2016-11-17] MEDS: Aspirin Enteric Coated 81 MG Tablet PO SCH (07:40)
[2016-11-17] MEDS: Pantoprazole 40 MG VIAL IVP SCH (07:40)
[2016-11-17] MEDS: Insulin LISPRO 300 UNITS/3 ML VIAL SQ SCH ×4 (07:41→21:14)
[2016-11-17] MEDS: *HR* OxyCODONE/APAP 5/325 TABLET PO PRN ×2 (09:54→17:33)
--- NOTE | 2016-11-17 09:54 | Cardiothoracic Progress Note ---
Date of Encounter: 11/17/16 Time of Encounter: 09:52 - Assessment and plan (1) CAD (coronary artery disease) Current Visit: No Status: Chronic The assessment and plan as outlined above was discussed with the patient and/or family members who expressed understanding and agreement. All questions were answered. The chest tubes and pacing wires were removed. We will check a stat portable chest x-ray. I will increase her Lopressor dosage. Qualifiers: Coronary Disease-Associated Artery/Lesion type: [place] artery [place] vs. transplanted heart: [place] heart Associated angina: without angina Qualified Code(s): I25.10 - Atherosclerotic heart disease of [place] coronary artery without angina pectoris - Subjective Interval history: The patient complains of mild postoperative pain. Vital Signs, Last 4 Hours Temp Pulse Resp BP Pulse Ox 11/17/16 08:11 97.6 F 68 16 131/86 96 Oxgyen Flow Rate Oxygen Flow Rate (LPM) 2 Clinical Data, last 8 Hours Output, Chest Tube Drainage 20 Amount [Mediastinal #2] Output, Chest Tube Drainage 40 Amount [Mediastinal #2] Output, Chest Tube Drainage 40 Amount [Mediastinal #1] Output, Urine Amount 450 Output, Urine Amount 400 Weight 11/15/16 11/16/16 11/17/16 23:59 23:59 23:59 Weight 76.204 kg 77.1 kg Lungs are clear to percussion and auscultation. Heart is in a normal sinus rhythm with PACs. Her incision is healing well without signs of infection and her sternum is stable. Chest tubes had minimal drainage and no air leak. - Labs 11/17/16 04:55 11/17/16 04:55 Lab Results, Last 24 hours 11/17/16 11/17/16 04:55 04:55 WBC 15.0 H Hgb 8.6 L Hct 26.8 L Plt Count 86 L Sodium 135 L Potassium 4.6 H Chloride 103 Carbon Dioxide 23 BUN 28 H Creatinine 1.27 H Glucose 124 H Calcium 8.9 - VTE Reasons for not Prescribing Prophylaxis: Medical contraindication Documentation of Mechanical Device: Intermittent pneumatic compression device Consult Discharge Plan - Plan Referrals: Charlie Michaud CNP [Advanced Practice Nurse] - 11/30/16 2:00 pm Evelyn Julio MD [Partnered Physician] - 12/15/16 1:45 pm Elpidio Ruggiero MD [Primary Care Provider] - 11/25/16 2:00 pm
[2016-11-18] MEDS: Metoclopramide 10 MG/2 ML VIAL IVP SCH ×3 (00:48→11:34)
[2016-11-18 03:50] LABS: Basophils % 0.2 %; Hematocrit 26.2 % (35.3-44.9)
[2016-11-18 03:52] LABS: Eosinophils % 0.1 %; Hemoglobin 8.4 g/dL (11.5-15.4); Immature Granulocytes % 0.6 % (0-4); Immature Platelets 16.7 % (1.1-6.1); Lymphocytes # 1.5 K/mcL (0.6-4.6); Lymphocytes % 10.7 %; Mean Corpuscular HGB Conc 32.1 g/dL (31.6-35.5); Mean Corpuscular Volume 90.3 fL (83.0-100.0); Mean Platelet Volume 12.4 fL (9.4-12.4); Monocytes # 1.2 K/mcL (0.0-1.3); Monocytes % 8.3 %; Neutrophils # 11.5 K/mcL (1.6-8.9); Red Cell Distribution Width 14.8 % (11.5-14.5); Segmented Neutrophils % 80.1 %
[2016-11-18 03:57] LABS: Platelet Count 99 K/mcL (140-400)
[2016-11-18 04:00] LABS: Potassium 4.3 mEq/L (3.5-4.5)
[2016-11-18] MEDS: *HR* Heparin 5,000 UNIT/ML VIAL SQ SCH ×2 (06:28→17:24)
--- NOTE | 2016-11-18 07:34 | Cardiothoracic Progress Note ---
Date of Encounter: 11/18/16 Time of Encounter: 07:32 - Assessment and plan (1) CAD (coronary artery disease) Current Visit: No Status: Chronic The patient wants to be discharged to home and does not want to go to a rehabilitation facility. We will shoot for discharge on Monday. Qualifiers: Coronary Disease-Associated Artery/Lesion type: [place] artery [place] vs. transplanted heart: [place] heart Associated angina: without angina Qualified Code(s): I25.10 - Atherosclerotic heart disease of [place] coronary artery without angina pectoris - Subjective Interval history: The patient has no complaints. She is ambulating and improving. Vital Signs, Last 4 Hours Temp Pulse Resp BP Pulse Ox 11/18/16 07:25 98.4 F 81 18 138/62 97 11/18/16 04:30 86 11/18/16 04:03 18 97 11/18/16 03:43 98.2 F 81 22 122/53 98 Oxgyen Flow Rate Oxygen Flow Rate (LPM) 2 Clinical Data, last 8 Hours Output, Urine Amount 300 Weight 11/16/16 11/17/16 11/18/16 23:59 23:59 23:59 Weight 77.1 kg 75.2 kg Lungs are clear to percussion and auscultation. Heart is in a normal sinus rhythm. All incisions are healing well without signs of infection and the sternum is stable. Chest x-ray reveals a tiny left apical pneumothorax that is stable. - Labs 11/18/16 03:34 11/18/16 03:34 Lab Results, Last 24 hours 11/18/16 11/18/16 03:34 03:34 WBC 14.3 H Hgb 8.4 L Hct 26.2 L Plt Count 99 L Sodium 131 L Potassium 4.3 Chloride 96 L Carbon Dioxide 27 BUN 24 H Creatinine 1.15 H Glucose 112 H Calcium 9.0 - VTE Reasons for not Prescribing Prophylaxis: Medical contraindication Documentation of Mechanical Device: Graduated compression elastic hosiery Consult Discharge Plan - Plan Referrals: Charlie Michaud CNP [Advanced Practice Nurse] - 11/30/16 2:00 pm Evelyn Julio MD [Partnered Physician] - 12/15/16 1:45 pm Elpidio Ruggiero MD [Primary Care Provider] - 11/25/16 2:00 pm
[2016-11-18] MEDS: Insulin LISPRO 300 UNITS/3 ML VIAL SQ SCH ×4 (08:01→21:24)
[2016-11-18] MEDS: Pantoprazole 40 MG VIAL IVP SCH (08:08)
[2016-11-18] MEDS: Loratadine 10 MG TABLET PO SCH (08:08)
[2016-11-18] MEDS: Aspirin Enteric Coated 81 MG Tablet PO SCH (08:08)
[2016-11-18] MEDS: Furosemide 20 MG/2 ML VIAL IVP SCH (08:08)
[2016-11-18] MEDS: *HR* OxyCODONE/APAP 5/325 TABLET PO PRN (11:34)
[2016-11-18] MEDS ORDERED: Amiodarone Premix 150 MG/100 ML BAG IVPB ONE (20:08)
[2016-11-18] MEDS ORDERED: Amiodarone Premix 360 MG/200 ML BAG IVC ONE (20:08)
[2016-11-19] MEDS: Amiodarone Premix 360 MG/200 ML BAG IVC SCH ×2 (02:25→15:13)
[2016-11-19] MEDS: *HR* Heparin 5,000 UNIT/ML VIAL SQ SCH ×2 (06:22→17:04)
[2016-11-19] MEDS: Aspirin Enteric Coated 81 MG Tablet PO SCH (07:36)
[2016-11-19] MEDS: Pantoprazole 40 MG VIAL IVP SCH (07:36)
[2016-11-19] MEDS: Loratadine 10 MG TABLET PO SCH (07:36)
[2016-11-19] MEDS: Insulin LISPRO 300 UNITS/3 ML VIAL SQ SCH ×4 (07:44→20:24)
--- NOTE | 2016-11-19 08:37 | Cardiothoracic Progress Note ---
Date of Encounter: 11/19/16 Time of Encounter: 08:35 - Assessment and plan (1) CAD (coronary artery disease) Current Visit: No Status: Chronic We will continue the amiodarone drip until tomorrow morning and then switch her to by mouth. We will plan to discharge her on Monday. Qualifiers: Coronary Disease-Associated Artery/Lesion type: [place] artery [place] vs. transplanted heart: [place] heart Associated angina: without angina Qualified Code(s): I25.10 - Atherosclerotic heart disease of [place] coronary artery without angina pectoris - Subjective Interval history: The patient complains of decreased appetite. I reassured her that decreased appetite is common after any major surgery. Vital Signs, Last 4 Hours Temp Pulse Resp BP Pulse Ox 11/19/16 07:49 80 11/19/16 07:48 14 93 11/19/16 07:25 98.1 F 84 21 138/68 90 11/19/16 06:00 67 151/58 11/19/16 05:00 64 141/61 Oxgyen Flow Rate Oxygen Flow Rate (LPM) 0 Clinical Data, last 8 Hours Output, Urine Amount 200 Weight 11/17/16 11/18/16 11/19/16 23:59 23:59 23:59 Weight 77.1 kg 75.2 kg 75.5 kg Lungs are clear to percussion and auscultation. Heart is in a normal sinus rhythm on an amiodarone drip. All incisions are healing well without signs of infection and the sternum is stable. - Labs 11/18/16 03:34 11/18/16 03:34 - VTE Reasons for not Prescribing Prophylaxis: Medical contraindication Documentation of Mechanical Device: Graduated compression elastic hosiery Consult Discharge Plan - Plan Referrals: Charlie Michaud CNP [Advanced Practice Nurse] - 11/30/16 2:00 pm Evelyn Julio MD [Partnered Physician] - 12/15/16 1:45 pm Elpidio Ruggiero MD [Primary Care Provider] - 11/25/16 2:00 pm
[2016-11-20] MEDS: Amiodarone Premix 360 MG/200 ML BAG IVC SCH (02:41)
[2016-11-20] MEDS: *HR* Heparin 5,000 UNIT/ML VIAL SQ SCH ×2 (05:33→17:00)
[2016-11-20 06:06] LABS: Basophils % 0.3 %; Eosinophils # 0.1 K/mcL (0.0-0.6); Eosinophils % 1.3 %; Hemoglobin 8.6 g/dL (11.5-15.4); Immature Platelets 8.2 % (1.1-6.1); Lymphocytes # 1.7 K/mcL (0.6-4.6); Lymphocytes % 18.1 %; Mean Corpuscular HGB Conc 33.1 g/dL (31.6-35.5); Mean Corpuscular Hemoglobin 30.2 pg (28.0-33.3); Mean Corpuscular Volume 91.2 fL (83.0-100.0); Mean Platelet Volume 11.1 fL (9.4-12.4); Monocytes # 1.1 K/mcL (0.0-1.3); Monocytes % 11.1 %; Neutrophils # 6.4 K/mcL (1.6-8.9); Nucleated Red Blood Cells 0.2 /100 WBC (0); Platelet Count 189 K/mcL (140-400); Red Blood Count 2.85 M/mcL (3.82-4.97); Red Cell Distribution Width 15.2 % (11.5-14.5); Segmented Neutrophils % 68.2 %
[2016-11-20 06:19] LABS: BUN/Creatinine Ratio 25 (6-26); Blood Urea Nitrogen 23 mg/dL (7-20); Calcium 8.7 mg/dL (8.6-10.8); Carbon Dioxide 25 mEq/L (19-29); Chloride 97 mEq/L (98-109); Glucose 89 mg/dL (70-99); Osmolality,Calculated 277 (280-300); Potassium 3.7 mEq/L (3.5-4.5); Sodium 132 mEq/L (136-145); eGFR For African Americans > 60 (> 60); eGFR For Non-African Americans > 60 (> 60)
[2016-11-20] MEDS: Insulin LISPRO 300 UNITS/3 ML VIAL SQ SCH (07:49)
[2016-11-20] MEDS: Pantoprazole 40 MG VIAL IVP SCH (07:56)
[2016-11-20] MEDS: Loratadine 10 MG TABLET PO SCH (07:56)
[2016-11-20] MEDS: Aspirin Enteric Coated 81 MG Tablet PO SCH (07:56)
--- NOTE | 2016-11-20 08:07 | Cardiothoracic Progress Note ---
Date of Encounter: 11/20/16 Time of Encounter: 08:05 - Assessment and plan (1) CAD (coronary artery disease) Current Visit: No Status: Chronic We will switch her from IV to by mouth amiodarone. We will plan to discharge her tomorrow. Qualifiers: Coronary Disease-Associated Artery/Lesion type: [place] artery [place] vs. transplanted heart: [place] heart Associated angina: without angina Qualified Code(s): I25.10 - Atherosclerotic heart disease of [place] coronary artery without angina pectoris - Subjective Interval history: The patient has no complaints and is anxious to go home. Vital Signs, Last 4 Hours Temp Pulse Resp BP Pulse Ox 11/20/16 07:52 71 20 135/52 95 11/20/16 04:32 16 95 11/20/16 04:09 98 F 68 18 142/59 93 Oxgyen Flow Rate Oxygen Flow Rate (LPM) 0 Clinical Data, last 8 Hours Output, Urine Amount 400 Weight 11/18/16 11/19/16 11/20/16 23:59 23:59 23:59 Weight 75.2 kg 75.5 kg 76.2 kg Lungs are clear to percussion and auscultation. Heart is in a normal sinus rhythm with occasional PVC. All incisions are healing well without signs of infection and the sternum is stable. - Labs 11/20/16 05:43 11/20/16 05:43 Lab Results, Last 24 hours 11/20/16 11/20/16 05:43 05:43 WBC 9.4 Hgb 8.6 L Hct 26.0 L Plt Count 189 D Sodium 132 L Potassium 3.7 Chloride 97 L Carbon Dioxide 25 BUN 23 H Creatinine 0.91 Glucose 89 Calcium 8.7 - VTE Reasons for not Prescribing Prophylaxis: Medical contraindication Documentation of Mechanical Device: Graduated compression elastic hosiery Consult Discharge Plan - Plan Referrals: Charlie Michaud CNP [Advanced Practice Nurse] - 11/30/16 2:00 pm Evelyn Julio MD [Partnered Physician] - 12/15/16 1:45 pm Elpidio Ruggiero MD [Primary Care Provider] - 11/25/16 2:00 pm
[2016-11-20] MEDS: *HR* Amiodarone 200 MG TABLET PO SCH ×2 (08:59→21:41)
--- NOTE | 2016-11-20 17:55 | Electrocardiograph Report ---
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
[2016-11-21] MEDS: *HR* OxyCODONE/APAP 5/325 TABLET PO PRN ×2 (01:32→07:46)
[2016-11-21] MEDS: *HR* Heparin 5,000 UNIT/ML VIAL SQ SCH (07:46)
[2016-11-21 07:53] VITALS: BP 143/61
[2016-11-21] MEDS: Aspirin Enteric Coated 81 MG Tablet PO SCH (08:16)
[2016-11-21] MEDS: Loratadine 10 MG TABLET PO SCH (08:16)
[2016-11-21] MEDS: Pantoprazole 40 MG VIAL IVP SCH (08:16)
--- NOTE | 2016-11-21 08:38 | Discharge Summary ---
Date of Encounter: 11/21/16 Time of Encounter: 08:29 - Discharge Diagnosis (1) CAD (coronary artery disease) Priority: Primary Status: Chronic Qualifiers: Coronary Disease-Associated Artery/Lesion type: [place] artery [place] vs. transplanted heart: [place] heart Associated angina: without angina Qualified Code(s): I25.10 - Atherosclerotic heart disease of [place] coronary artery without angina pectoris - Discharge Medications Prescriptions: OxyCODONE/APAP 5/325 [Percocet 5/325 MG] 1 each PO Q4HR PRN #20 tablet PRN Reason: Severe Pain Amiodarone [Cordarone] 200 mg PO DAILY #30 tablet Metoprolol [Lopressor] 50 mg PO BID #60 tablet Home Medications: ALPRAZolam [Xanax 0.25 MG Tablet] 0.25 mg PO BID PRN 09/23/16 [History] Allopurinol [Zyloprim 100 MG] 100 mg PO DAILY 09/23/16 [History] Aspirin [Lo-Dose Aspirin EC] 81 mg PO DAILY 09/23/16 [History] Clopidogrel [Plavix] 75 mg PO DAILY 09/23/16 [History] Loratadine [Claritin] 10 mg PO DAILY 09/23/16 [History] Ramipril [Altace] 10 mg PO DAILY 09/23/16 [History] Ranitidine HCl [Heartburn Relief] 150 mg PO BID 09/23/16 [History] Ferrous Sulfate [Iron] 325 mg PO BID 10/18/16 [History] Isosorbide MONOnitrate (24 HR) [Imdur] 30 mg PO DAILY 11/15/16 [History] Amiodarone [Cordarone] 200 mg PO DAILY #30 tablet 11/21/16 [Rx] Metoprolol [Lopressor] 50 mg PO BID #60 tablet 11/21/16 [Rx] OxyCODONE/APAP 5/325 [Percocet 5/325 MG] 1 each PO Q4HR PRN #20 tablet 11/21/16 [Rx] Allergies/Adverse Reactions: 3 Allergy/AdvReac Type Severity Reaction Status Date / Time Amoxicillin Allergy Anaphylaxis Verified 11/15/16 07:43 guaifenesin Allergy Swelling Verified 11/15/16 07:43 of Lip/Tongue/Throat Sulfa (Sulfonamide Allergy Anaphylaxis Verified 11/15/16 07:43 Antibiotics) baclofen AdvReac See Verified 11/15/16 07:43 Comments doxycycline AdvReac Vomiting Verified 11/15/16 07:43 hydrochlorothiazide AdvReac See Verified 11/15/16 07:43 Comments Mkcurcr-Gor-Nac Reductase AdvReac Muscle Pain Verified 11/15/16 07:43 Inhibitor [Statins] flu vaccine AdvReac See Uncoded 10/18/16 10:03 Comments Procedures/tests Complete & Pending: Procedures Performed prior 72 hours Category Date Time Status ECG 12 lead ECG [ECG] Routine Y 11/18/16 19:56 Completed Date of admission: 11/15/16 11:22 Primary care physician: Elpidio Ruggiero MD Consults: 11/15/16 11:50 Consult to Cardiac Rehabilitation-Phase1 [CONS] Routine Comment: Reason for Consult: Post open heart Call Completed: Yes Procedure(s) Performed: November 15, 2016. Coronary artery bypass grafting 2, utilizing the left internal mammary artery. Discharging clinician: Pedro Luis Cabezas Anticipated date of discharge: 11/21/16 - Patient Status Disposition: Home, Self-Care Condition: Fair Functional capacity at discharge: independent ambulation Overall status at discharge: patient is progressing back to baseline - Discharge Instructions Follow Up With: Charlie Michaud CNP [Advanced Practice Nurse] - 11/30/16 2:00 pm Evelyn Julio MD [Partnered Physician] - 12/15/16 1:45 pm Elpidio Ruggiero MD [Primary Care Provider] - 11/25/16 2:00 pm - Hospital Course Hospital course: Ms. Mega Harkins is a 76 year old female The patient is a 76-year-old female with a history of hypertension, hypercholesterolemia, cerebral vascular disease, peripheral arterial disease and cardiac disease who has had 2 previous myocardial infarctions and stents placed in her heart in the past. Cardiac catheterization revealed triple-vessel disease with a ejection fraction of 40-45%. On November 15, 2016, Dr. Julio took the patient to the operating room for coronary artery bypass grafting 2, utilizing her left internal mammary artery. On November 16 the patient was transferred to [facility]. Chest tubes were removed on November 17. A chest x-ray revealed a tiny left apical pneumothorax. Chest x-ray on November 18 was improved. The patient did develop atrial fibrillation and was converted to normal sinus rhythm on an amiodarone drip. She otherwise did well and was discharged on November 21. At that time she was afebrile. Lungs were clear to percussion and auscultation. Heart was in a normal sinus rhythm. All incisions were healing well without signs of infection and the sternum was stable. Discharge medications are on the med rec and include Percocet for pain. I did check the [place] automated Rx reporting system. She was given a one-week supply and she was postoperative. Appropriate precautions were given. She was to walk as much as possible, but to avoid heavy lifting for a total of 3 months after surgery. She was to avoid driving for 1 month. She was to return to her previous and regular diet. She was to follow up and see Dr. Julio in the office in 4 weeks as directed. 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 She was to call sooner for any difficulties. - Time Spent with Patient Total time spent providing and/or coordinating discharge services: Physical Examination Vital Signs, Last 4 Hours Temp Pulse Resp BP Pulse Ox 11/21/16 07:45 97.9 F 65 20 143/61 94 Open Heart Registry Aspirin Cont/Prescribed at DC: Yes Beta Tong Cont/Prescribed at DC: Yes Statin Cont/Prescribed at DC: No Contraindication No Statin at DC: Drug Allergy to All Antithromobic Medications KERRI/ARB Cont/Prescribed at DC: Yes - VTE Reasons for not Prescribing Prophylaxis: Medical contraindication Documentation of Mechanical Device: Graduated compression elastic hosiery
[2016-11-21] MEDS ORDERED: *HR* Amiodarone 200 MG TABLET PO SCH (09:00)
== END 2016-11-21 11:08 | disposition home or self-care (01) | DRG 236 ==
LOC: SAMDAY 06:25 → ICNU 11:22 → 2NNU 11-16 17:47
PROVIDERS: ADMIT Thoracic Surgery (Cardiothoracic Vascular Surgery); ATTEND Thoracic Surgery (Cardiothoracic Vascular Surgery)

== ENCOUNTER 2017-02-06 06:09 | Inpatient (IN) ==
[2017-02-06] MEDS ORDERED: Nitroglycerin 1,000 MCG/10 ML VIAL IV ONE (06:11)
[2017-02-06] MEDS ORDERED: Tirofiban 5 MG/100ML 0 MG/0 ML BAG IV ONE (06:50)
[2017-02-06] MEDS ORDERED: *HR* FentaNYL (PF) 100 MCG/2 ML VIAL ONE (06:50)
[2017-02-06] MEDS ORDERED: *HR* Midazolam HCl 2 MG/2 ML VIAL ONE (06:50)
[2017-02-06] MEDS ORDERED: Tirofiban 5 MG/100ML 5 MG/100 ML BAG IV ONE (07:03)
[2017-02-06] MEDS ORDERED: Nitroglycerin Spray 4.9 GM BOTTLE ONE (07:29)
--- NOTE | 2017-02-06 08:22 | Cardiology History & Physical ---
Date of Encounter: 02/06/17 Time of Encounter: 08:20 Assessment and Plan (1) STEMI (ST elevation myocardial infarction) Current Visit: Yes Status: Acute The assessment and plan as outlined above was discussed with the patient and/or family members who expressed understanding and agreement. All questions were answered. Inferior STEMI s/p CABG here with ST elevations, R/B/A d/w pt and she agrees to proceed. Qualifiers: Involved coronary artery: left circumflex coronary artery Qualified Code(s) : I21.21 - ST elevation (STEMI) myocardial infarction involving left circumflex coronary artery History of Present Illness Chief complaint: Chets pain HPI: Ms. Mega Harkins is a 76 year old female h/o HTN, HLP, CAD s/p CABG with WOOD to LAD, SVG to OM1 10/2016 here with chest pain and inferior ST elevations. R/B/A d/w pt and she agrees to proceed with a LHC on an emergent basis. Medications and Allergies 3 Allergy/AdvReac Type Severity Reaction Status Date / Time Amoxicillin [From Amoxil] Allergy Anaphylaxis Verified 02/06/17 05:19 baclofen Allergy Anaphylaxis Verified 02/06/17 05:19 doxycycline Allergy Vomiting Verified 02/06/17 05:19 guaifenesin Allergy Swelling Verified 02/06/17 05:19 of Lip/Tongue/Throat Influenza Virus Vaccines Allergy See Verified 02/06/17 05:19 Comments Ljqsrnw-Pwy-Pug Reductase Allergy Muscle Pain Verified 02/06/17 05:19 Inhibitor [Statins] Sulfa (Sulfonamide Allergy Anaphylaxis Verified 02/06/17 05:19 Antibiotics) hydrochlorothiazide AdvReac See Verified 02/06/17 05:19 Comments All Systems Review: A 10-system review of systems was performed and is negative for pertinent findings except as documented above in the HPI. Physical Examination General: Conversant, No Apparent Distress HEENT: Atraumatic, Normocephaly, Mucus Membranes Moist Neck: No JVD, Normal carotid pulses Cardiac: Reg Rate and Rhythm, Normal S1 and S2, No Murmur Lungs: Normal Breath Sounds, No Wheeze, Rales, Rhonchi Neuro: Alert and responsive, No focal deficits noted Abdomen: Soft, Non-Tender Skin: No rashes noted on visualized skin Musculoskeletal: No Chest Wall Tenderness Extremities: No Clubbing, No Cyanosis, No Edema, Normal Pulses
[2017-02-06] MEDS ORDERED: *HR* Morphine 2 MG/ML SYRINGE IVP PRN (08:23)
--- NOTE | 2017-02-06 08:37 | Invasive Diagnostic Lab Proc ---
Name: Ira Gould Date of Study: 02/06/2017 Date: 1940 Ht: 66.1in Medical Record#: [id number] Age: 76 Wt: 167.55lb Gender: Female BSA: 1.86 Order #: [id number] BMI: 26.93 Physicians Procedure Physician: Katty Green MD Referring MD: Referring MD: Staff Name Position Time In Pablo Campos RN Monitor 06:46 AM Desi Jasmine RN [employer] Press Operator 06:46 AM Mireille Sanches RT Scrub 06:46 AM Indications Indication STEMI Procedures Performed Procedure PRQ CARD REVASC IN 1 VSL L HRT ARTERY/VENTRICLE ANGIO PRQ CARDIAC ANGIOPLAST 1 ART Pre-Procedure Checklist Informed consent is complete signed and on chart. H&P is on chart. ID band is on and ID verified with patient. Pt not NPO for procedure and MD aware. The procedure was described for the patient and questions were answered. Blood Pressure: 134/75 ECG is on chart. Rhythm: NSR Plan of Care Patient will tolerate the procedure without complications. Adequate level of comfort will be maintained. Hemodynamics will remain stable Patient will recover from procedure without complications. Respiratory function will be maintained. Cardiac rhythm will remain stable. Patient temperature will be maintained. Patient and/or family have verbalized understanding of the procedure. Patient Education Intravenous Access Time IV Size Location DC'd Fluid/Drip Rate Units RN 06:52 AM 20g 1 1" Patent On Arrival Lt Antecubital 0.9NaCl 25 ml/hr Desi Jasmine RN 06:52 AM 18g 1 1/4" Patent On Arrival Rt Antecubital Desi Jasmine RN Allergies Influenza Virus Vaccines Keutfzn-Snp-Ywo Reductase Inhibitor guaifenesin baclofen Sulfa (Sulfonamide Antibiotics) Vital Signs Time BP (mmHg) HR (bpm) O2 Sat. RR (bpm) LOC 06:48 AM / % 5 = Fully awake and oriented or at pre-proc level 06:48 AM / % 4 = Oriented but drowsy 07:03 AM / % 4 = Oriented but drowsy 07:19 AM / % 4 = Oriented but drowsy 07:34 AM / % 4 = Oriented but drowsy 07:49 AM / % 4 = Oriented but drowsy 08:04 AM / % Procedural Medications Time Medication Dose Units Method Given By 06:48 AM Oxygen 3 L/min nasal cannula Desi Jasmine RN 06:50 AM Lidocaine 2% 10 ml Subcutaneous Katty Green MD 06:51 AM Versed 1 mg Intravenous Desi Jasmine RN 06:51 AM Fentanyl 50 mcg Intravenous Desi Jasmine RN 06:56 AM Heparin 500 units Intravenous Desi Jasmine RN 07:02 AM Aggrastat Bolus: 37.5 ml Intravenous Desi Jasmine RN 07:02 AM Aggrastat 12.5mg/250ml 6.75 ml/hr Intravenous Desi Jasmine RN 07:08 AM Nitroglycerin 100 mcg Intracoronary Madhavi Green MD 07:25 AM Nitroglycerin 100 mcg IntracoronMadhavi Gaffney MD 07:29 AM Nitroglycerin 400 mcg Orally Desi Jasmine RN 07:29 AM Nitroglycerin 100 mcg Intracoronary Madhavi Green MD ASA Classification: Emergent Procedure: ASA score is assumed Luz Marina Score Preprocedure Postprocedure Activity 2- Moves 4 extremities sustained head lift Activity Circulation 2- SBP +/= 20 points of pre-anesthetic level Circulation Consciousness 2- Awake and alert oriented x 3 Consciousness O2 Saturation 2- Able to maintain O2 satruation of 92% on room air O2 Saturation Respiratory 2- Able to deep breathe and cough well Respiratory Total Score 10 Total Score Contrast Agent: Isovue Diagnostic Contrast: 278 ml Total Contrast: 278 ml Fluoro Dose: 912 mGy Activated Clotting Time Time Seconds to Clot 06:55 AM 201 07:30 AM 305 Procedure Log Time Note Enter By 06:38 AM Pt arrived to labor and delivery registered nurse 2 at 06:38, chest pain 8/10 [email or web address] 06:45 AM Hair removed from procedure site in procedure lab using clippers. Bilateral groin prepped with Chloraprep by Desi Jasmine RN, safety strap applied then patient was draped. Skin intact. [email or web address] 06:45 AM Procedure start 06:45 csmith 06:45 AM Time out performed according to hospital policy csmith 06:46 AM Pablo Campos RN Position: Monitor Time in: 06:46 csmith 06:46 AM Desi Jasmine RN Position: [employer] Press Operator Time in: 06:46 csmith 06:46 AM Mireille Sanches RT Position: Scrub Time in: 06:46 csmith 06:48 AM Time: 06:48 Oxygen on at 3 L/min per nasal cannula by Desi Jasmine RN csmith 06:48 AM Time: 06:48 Patient comfortable and pain free: Yes csmith 06:48 AM Time: 06:48LOC: 5 = Fully awake and oriented or at pre-proc level csmith 06:49 AM Patient charges- Angio tray pack, Navilyst 3mm J, Pulse Oximetry and ACIST tubing and transducer csmith 06:50 AM Time: 06:50 10 ml Lidocaine 2% to right groin Subcutaneous Given by Katty Green MD csmith 06:51 AM Time: 06:51 Versed 1 mg Intravenous Given by Desi Jasmine RN csmith 06:51 AM Time: 06:51 Fentanyl 50 mcg Intravenous Given by Desi Jasmine RN csmith 06:51 AM Micro-Introducer Kit utilized for sheath placement csmith 06:51 AM Access obtained by percutaneous puncture. 6Fr 10cm Terumo [place] sheath placed in right Femoral artery. [id number] csmith 06:54 AM 5Fr FL 4 catheter inserted over the wire DNC csmith 06:54 AM LCA angiography performed in multiple views. csmith 06:55 AM Catheter removed csmith 06:55 AM At 06:55 the ACT was 201 seconds. csmith 06:56 AM Catheter removed csmith 06:56 AM Time: 06:56 Heparin 500 units Intravenous Given by Desi Jasmine RN IVP csmith 06:57 AM RCA angiography performed in one view. csmith 06:57 AM SVG to the 1st OM angio performed in multiple views. csmith 06:59 AM 6Fr XB LAD 3.5 Cordis guide catheter was used to cannulate the PCI vessel successfully. reused? No csmith 07:01 AM .014 [place] 180cm guide wire across target lesion- successful. reused? No csmith 07:01 AM Inflation device was opened. csmith 07:01 AM 2.0 mm x 12 mm Emerge Monorail balloon across target lesion- successful. reused? No - taken to circumflex csmith 07:02 AM Balloon inflated @ 6 romulo for 5 seconds csmith 07:02 AM Time: 07:02 Aggrastat Bolus: 37.5 ml Intravenous Given by Desi Jasmine RN [place] pump csmith 07:03 AM Time: 07:02 Aggrastat 12.5mg/250ml 6.75 ml/hr Intravenous Given by Desi Jasmine RN [place] pump csmith 07:03 AM Balloon inflated @ 6 romulo for 4 seconds csmith 07:03 AM Balloon inflated @ 10 romulo for 10 seconds csmith 07:03 AM Balloon inflated @ 6 romulo for 4 seconds csmith 07:03 AM Time: 06:48 Patient comfortable and pain free: Yes csmith 07:03 AM Time: 06:48LOC: 4 = Oriented but drowsy csmith 07:03 AM Balloon inflated @ 6 romulo for 4 seconds csmith 07:04 AM Balloon inflated @ 6 romulo for 3 seconds csmith 07:04 AM Balloon inflated @ 8 romulo for 7 seconds csmith 07:04 AM Balloon inflated @ 10 romulo for 8 seconds csmith 07:05 AM Coronary Dominance: Left csmith 07:07 AM Balloon inflated @ 10 romulo for 30 seconds csmith 07:07 AM Lesion found in Mid Circumflex. Pre Stenosis: 90 Pre GORDON Flow: 2: Partial Flow/Perfusion (> 1 but < 3) csmith 07:08 AM Time: 07:08 Nitroglycerin 100 mcg Intracoronary Given by Madhavi Green MD csmith 07:10 AM Balloon inflated @ 10 romulo for 10 seconds csmith 07:10 AM Balloon inflated @ 10 romulo for 10 seconds csmith 07:10 AM Balloon inflated @ 10 romulo for 12 seconds csmith 07:11 AM balloon pulled out of vessel csmith 07:15 AM chest pain 'greatly improved per patient, unable to quantify' csmith 07:19 AM Time: 07:03LOC: 4 = Oriented but drowsy csmith 07:19 AM Time: 07:03 Patient comfortable and pain free: Yes csmith 07:19 AM 2.5mm x 16mm Synergy drug-eluting stent across target lesion- successful Lot #[id number] csmith 07:19 AM Stent deployed @ 11 romulo for 10 seconds csmith 07:19 AM Stent balloon reinflated @ 18 romulo for 13 seconds csmith 07:20 AM Stent delivery system removed intact. csmith 07:20 AM Lesion found in Proximal Circumflex. Pre Stenosis: 70 Pre GORDON Flow: 3: Complete and Brisk Flow/Perfusion csmith 07:20 AM Lesion found in Distal Circumflex. Pre Stenosis: 100 Pre GORDON Flow: 0: No Flow/No perfusion csmith 07:21 AM 2.5 mm x 12mm NC Emerge balloon across target lesion- successful. reused? No csmith 07:21 AM pt reports no pain at this time csmith 07:22 AM Balloon inflated @ 20 romulo for 14 seconds csmith 07:22 AM Balloon catheter removed intact. csmith 07:25 AM Time: 07:25 Nitroglycerin 100 mcg Intracoronary Given by Madhavi Green MD csmith 07:29 AM Time: 07:29 Nitroglycerin 400 mcg Orally Given by Desi Jasmine RN csmith 07:30 AM Time: 07:29 Nitroglycerin 100 mcg Intracoronary Given by Madhavi Green MD csmith 07:30 AM At 07:30 the ACT was 305 seconds. csmith 07:31 AM Guide wire removed intact. csmith 07:31 AM Guide catheter removed intact. csmith 07:32 AM 5Fr IM catheter inserted over the wire [id number] csmith 07:32 AM Left JARED to the LAD angio performed in multiple views. csmith 07:34 AM Time: 07:19 Patient comfortable and pain free: Yes csmith 07:34 AM Time: 07:19LOC: 4 = Oriented but drowsy csmith 07:34 AM Catheter removed csmith 07:35 AM 5Fr Pigtail catheter inserted over the wire DNC csmith 07:35 AM Catheter selectively placed in left ventricle csmith 07:36 AM Bolus angiogram of left Ventricle complete: 10 ml/sec for a total of 20 mls csmith 07:37 AM Catheter removed csmith 07:38 AM Bolus angiogram of right Femoral complete: 4 ml/sec for a total of 7 mls csmith 07:49 AM Time: 07:34 Patient comfortable and pain free: Yes csmith 07:49 AM Time: 07:34LOC: 4 = Oriented but drowsy csmith 07:51 AM Procedure completed at 07:51 csmith 07:52 AM Sign out completed: Radiation Dose 911.99 mGy Fluoro Time: 11.3 Isovue 370 - 200ml contrast 278 ml given by Katty Green MD. Complications: NoneCardiac Rehab Consult needed: YesConfirmed administered medications: Yes csmith 07:52 AM Isovue 370 - 200ml,1 Bottle(s) used. csmith 07:52 AM Sheath left in place to be pulled on floor/holding areaV+Pad csmith 07:52 AM Estimated Blood Loss: minimal csmith 07:52 AM Post ECG NSR csmith 07:52 AM Post Blood Pressure 139/70 csmith 07:53 AM 07:52 Post Pulses Bilateral DP Doppler csmith 07:53 AM 07:53 Post Pulses Bilateral PT Doppler csmith 07:53 AM Information taught Cardiac Cath and PCI csmith 07:53 AM Education needs Procedure, Plan of Care, and Disease Process csmith 07:53 AM Learning barriers :None csmith 07:53 AM Education Methods Verbal csmith 07:53 AM Education evaluation Able to repeat information csmith 07:53 AM Site status No bleeding/hematoma - Rt Groin as reported by Mireille Sanches RT at 07:53 csmith 07:53 AM Opsite applied csmith 07:53 AM Family placed in not available. csmith 07:54 AM Complications: None csmith 07:54 AM Fluoro Time: 11.3 csmith 07:54 AM Radiation Dose 911.99 mGy csmith 08:04 AM Time: 07:49LOC: 4 = Oriented but drowsy csmith 08:06 AM Report given to Mely SAMUEL Pt taken to ICU Room #6. 08:05 csmith 08:06 AM Patient out of room: 08:06 csmith 08:19 AM Time: 08:04LOC: csmith Complications Complication None None Post Procedure Information Blood Pressure: 139/70 mmHg Rhythm: NSR Post procedural instructions were given Site Checks Time Location Status Staff Sheath In? Note 07:53 AM Rt Groin No bleeding/hematoma Mireille Sanches RT Pulses Time Site Pre-Procedure Post-Procedure Note 02/06/2017 7:43:00 AM 7:52:00 AM Bilateral DP Doppler 7:53:00 AM Bilateral PT Doppler Updated by Desi Jasmine RN on 02/06/2017 8:28:04 AM electronically signed on 02/06/2017 8:28:52 AM with status of Final
[2017-02-06] MEDS: Aspirin 81 MG TAB.CHEW PO SCH (11:02)
[2017-02-06] MEDS ORDERED: ALPRAZolam 0.25 MG TABLET PO PRN (20:12)
[2017-02-06] MEDS: Famotidine 20 MG TABLET PO SCH (21:18)
[2017-02-07 05:34] LABS: Basophils # 0.1 K/mcL (0.0-0.2); Basophils % 0.6 %; Eosinophils % 0.3 %; Hematocrit 38.8 % (35.3-44.9); Hemoglobin 12.3 g/dL (11.5-15.4); Immature Granulocytes % 0.3 % (0-4); Lymphocytes # 1.8 K/mcL (0.6-4.6); Lymphocytes % 18.7 %; Mean Corpuscular HGB Conc 31.7 g/dL (31.6-35.5); Mean Corpuscular Hemoglobin 27.1 pg (28.0-33.3); Mean Corpuscular Volume 85.5 fL (83.0-100.0); Mean Platelet Volume 11.9 fL (9.4-12.4); Monocytes % 10.9 %; Neutrophils # 6.6 K/mcL (1.6-8.9); Platelet Count 178 K/mcL (140-400); Red Blood Count 4.54 M/mcL (3.82-4.97); Red Cell Distribution Width 17.2 % (11.5-14.5); Segmented Neutrophils % 69.2 %
[2017-02-07 05:39] LABS: Calcium 9.3 mg/dL (8.6-10.8); Potassium 4.5 mEq/L (3.5-4.5)
[2017-02-07] MEDS: Aspirin 81 MG TAB.CHEW PO SCH (08:16)
[2017-02-07] MEDS: Famotidine 20 MG TABLET PO SCH (08:16)
[2017-02-07] MEDS ORDERED: ALPRAZolam 0.25 MG TABLET PO PRN ×2 (10:26→11:32)
[2017-02-07] MEDS ORDERED: NON-FORMULARY MEDICATION 1 EACH EACH (Ranitidine Hcl [Heartburn Relief] 150 MG) PO SCH (10:30)
[2017-02-07] MEDS ORDERED: Loratadine 10 MG TABLET PO SCH (10:30)
[2017-02-07] MEDS ORDERED: Lisinopril 20 MG TABLET PO SCH (10:30)
--- NOTE | 2017-02-07 10:32 | Cardiology Progress Note ---
Date of Encounter: 02/07/17 Time of Encounter: 09:15 Assessment and Plan (1) STEMI (ST elevation myocardial infarction) Current Visit: Yes Status: Acute Per Cardiology: H/o HTN, HLP, CAD s/p CABG with WOOD to LAD, SVG to OM1 10/2016 here with chest pain and inferior ST elevations. S/p urgent LHC: Lesion Findings/Interventions * Left Main Coronary Artery The LMCA is angiographically free of disease. * Left Anterior Descending There is a 100% stenosis in the Proximal LAD. * Circumflex There is a 14 mm long, 70% stenosis in the Proximal Circumflex. The lesion has a GORDON flow of 3 and has no thrombus present. An intervention was performed on the Proximal Circumflex with a final stenosis of 0%. There were no lesion complications. The final GORDON flow was 3. There is a 10 mm long, 50% stenosis in the Distal Circumflex. The lesion has a GORDON flow of 2 and has no thrombus present. An intervention was performed on the Distal Circumflex with a final stenosis of 20%. There were no lesion complications. The final GORDON flow was 3. There is a 100% stenosis in the 1st Marginal. The lesion has a GORDON flow of 0 and has no thrombus present. An intervention was performed on the 1st Marginal with a final stenosis of 40%. There were no lesion complications. The final GORDON flow was 3. There is a 70% mid OM1 lesion. * Right Coronary Artery There is a 100% stenosis in the Proximal. Collaterals seen from circumflex and LAD to RCA. Additional Findings: Grafts * The left internal mammary graft to the Mid LAD is patent. GORDON flow is 3. * The saphenous vein graft to the 1st Marginal is occluded. On aspirin, Plavix. We'll resume home dose of beta hipolito and KERRI inhibitor. Echo shows EF preserved at 55%, no significant valvular dysfunction. Has cardiac rehabilitation. Chest pain free. Plan to transfer to floor. Qualifiers: Involved coronary artery: left circumflex coronary artery Qualified Code(s) : I21.21 - ST elevation (STEMI) myocardial infarction involving left circumflex coronary artery Discussion w patient/family: The assessment and plan as outlined above was discussed with the patient and/or family members who expressed understanding and agreement. All questions were answered. Thank you for involving us in the care of your patient. Please call with any questions. Subjective Principal diagnosis: STEMI Interval history: Patient denies any chest pain, shortness of breath, palpitations. Objective Vital Signs, Last 4 Hours Temp Pulse Pulse Resp BP Pulse Ox 02/07/17 09:00 90 16 116/63 96 02/07/17 08:00 90 14 111/64 94 02/07/17 07:30 98.6 F 02/07/17 07:25 89 02/07/17 07:00 93 18 119/49 94 General: Conversant, No Apparent Distress HEENT: Atraumatic, Normocephaly, Mucus Membranes Moist Neck: No JVD, Normal carotid pulses Cardiac: Reg Rate and Rhythm, Normal S1 and S2, No Murmur Lungs: Normal Breath Sounds, No Wheeze, Rales, Rhonchi Neuro: Alert and responsive, No focal deficits noted Abdomen: Soft, Non-Tender Skin: No rashes noted on visualized skin, Other (Mid sternal incision site well approximated, no drainage, no erythema, sternum stable, right groin site dry and intact, no hematoma, no ecchymosis, no bleeding, right DP and PT pulses 2+ palpable) Musculoskeletal: No Chest Wall Tenderness Extremities: No Clubbing, No Cyanosis, No Edema, Normal Pulses Results 02/07/17 04:37 02/07/17 04:37 Lab Results Laboratory Tests 02/07/17 04:37 Creatinine 1.39 H Est GFR (Non-Af Amer) 37 L ITS Impressions Echocardiogram 02/06/17 08:26 Impressions: LVEF 55%. Not all segments were well visualized, but overall function appears normal. Normal LV chamber size and function. Mild concentric left ventricular hypertrophy. Mild left ventricular diastolic dysfunction. Atypical septal motion consistent with post-operative status. Normal right ventricular structure and function. Unable to estimate RVSP due to lack of TR jet. No significant valvular dysfunction. Consider a repeat study with Definity to better evaluate segmental wall motion. Findings: Study Quality * Technically sub-optimal due to poor echocardiographic windows. ECG Findings * Normal sinus rhythm. Left Ventricle * LVEF 55%. Not all segments were well visualized, but overall function appears normal. * Normal LV chamber size and function. * Mild concentric left ventricular hypertrophy. * Mild left ventricular diastolic dysfunction. * Atypical septal motion consistent with post-operative status. Right Ventricle * Normal right ventricular structure and function. Left Atrium * Normal left atrial size. Right Atrium * Normal right atrial size. Interatrial Septum * Interatrial septum not well evaluated. Aortic Valve * Aortic valve not well visualized. * No aortic regurgitation. * No aortic stenosis. Mitral Valve * Normal mitral valve structure and function. * No mitral regurgitation. * No mitral stenosis. Tricuspid Valve * Normal tricuspid valve structure and function. * No tricuspid regurgitation. * Unable to estimate RVSP due to lack of TR jet. Pulmonic Valve * Pulmonic valve is not well visualized. Aorta * Normally sized aortic root. Pericardium * The pericardium appears normal. IVC * Normal IVC dimensions and inspiratory collapse. Pulmonary Artery * Normal visualized portions of the main pulmonary artery. Active Medications Acetaminophen (Tylenol) 500 mg PO Q6HR PRN PRN Reason: Mild Pain Stop: 08/08/17 08:24 Allopurinol (Zyloprim) [address] [facility] Stop: 08/09/17 10:31 Alprazolam (Xanax) 0.25 mg PO BID PRN; Protocol PRN Reason: Anxiety Stop: 08/08/17 20:13 Last Admin: 02/06/17 21:18 Dose: 0.25 mg Alprazolam (Xanax) 0.25 mg PO BID PRN; Protocol PRN Reason: Anxiety Stop: 08/09/17 10:27 Aspirin (Aspirin) [address] [facility] Stop: 08/08/17 09:01 Last Admin: 02/07/17 08:16 Dose: 81 mg Clopidogrel Bisulfate (Plavix) [address] [facility] Stop: 08/08/17 09:01 Last Admin: 02/07/17 08:16 Dose: 75 mg Famotidine (Pepcid) [address] [facility] PRN Reason: Protocol Stop: 08/08/17 21:01 Last Admin: 02/07/17 08:16 Dose: 20 mg Metoprolol Tartrate (Lopressor) [address] [facility] Stop: 08/09/17 10:31 Morphine Sulfate (Morphine Sulfate) 4 mg IVP Q3H PRN PRN Reason: Severe Pain (7-10) Stop: 08/08/17 08:24 Non-Formulary Medication (Loratadine [Claritin]) [address] [facility] Stop: 08/09/17 10:31 Non-Formulary Medication (Ramipril [Altace]) [address] [facility] Stop: 08/09/17 10:31 Non-Formulary Medication (Ranitidine Hcl [Heartburn Relief]) [address] [facility] Stop: 08/09/17 10:31 - Imaging and Cardiology Echo: report reviewed Cardiac cath: report reviewed - EKG Interpretation EKG results cardiology: other (SR on tele) - VTE Reasons for not Prescribing Prophylaxis: Not indicated-Anticoagulated or INR therapeutic Consult Discharge Plan - Plan Referrals: Elpidio Ruggiero MD [Primary Care Provider] -
[2017-02-07] MEDS ORDERED: *HR* Morphine 2 MG/ML SYRINGE IVP PRN (11:32)
--- NOTE | 2017-02-07 16:13 | Electrocardiograph Report ---
[address] [place] [address] Test Date: 2017-02-06 Pat Name: Ira Harkins Department: 109 Room: 06 Gender: Stand In: NICK : [id number] Requested By: Katty Green Order Number: [id number] Reading MD: Gianluca Griggs DO Measurements Intervals [place] Rate: 80 P: 67 HI: 188 QRS: 34 QRSD: 82 T: -67 QT: 391 QTc: 427 Interpretive Statements SINUS RHYTHM LEFT ATRIAL ENLARGEMENT INFERIOR MYOCARDIAL INFARCTION, AGE UNDETERMINED LATERAL ST-T CHANGES POSSIBLY DUE TO ISCHEMIA Electronically Signed On 02-07-2017 16:11:43 EST by Gianluca Griggs DO
[2017-02-08] MEDS ORDERED: Famotidine 20 MG TABLET PO SCH (07:30)
[2017-02-08] MEDS: Aspirin 81 MG TAB.CHEW PO SCH (07:43)
[2017-02-08] MEDS: Famotidine 20 MG TABLET PO SCH (07:43)
[2017-02-08] MEDS: Loratadine 10 MG TABLET PO SCH (07:44)
[2017-02-08 08:50] LABS: Basophils # 0.1 K/mcL (0.0-0.2); Basophils % 0.6 %; Eosinophils # 0.1 K/mcL (0.0-0.6); Eosinophils % 1.2 %; Hematocrit 36.6 % (35.3-44.9); Hemoglobin 11.8 g/dL (11.5-15.4); Immature Granulocytes % 0.4 % (0-4); Lymphocytes # 1.7 K/mcL (0.6-4.6); Lymphocytes % 17.1 %; Mean Corpuscular HGB Conc 32.2 g/dL (31.6-35.5); Mean Corpuscular Hemoglobin 27.4 pg (28.0-33.3); Mean Corpuscular Volume 84.9 fL (83.0-100.0); Mean Platelet Volume 11.8 fL (9.4-12.4); Monocytes # 0.9 K/mcL (0.0-1.3); Monocytes % 8.5 %; Neutrophils # 7.3 K/mcL (1.6-8.9); Platelet Count 190 K/mcL (140-400); Red Blood Count 4.31 M/mcL (3.82-4.97); Red Cell Distribution Width 17.2 % (11.5-14.5); Segmented Neutrophils % 72.2 %
[2017-02-08] MEDS ORDERED: Lisinopril 20 MG TABLET PO SCH (09:00)
[2017-02-08 09:04] LABS: Calcium 9.1 mg/dL (8.6-10.3); Potassium 4.2 mEq/L (3.5-5.1)
--- NOTE | 2017-02-08 11:10 | Cardiology Progress Note ---
Date of Encounter: 02/08/17 Time of Encounter: 11:08 Assessment and Plan (1) STEMI (ST elevation myocardial infarction) Current Visit: Yes Status: Acute Per Cardiology: H/o HTN, HLP, CAD s/p CABG with WOOD to LAD, SVG to OM1 10/2016 here with chest pain and inferior ST elevations. LHC revealed severe three vessel coronary artery disease, EF 55% Patient had successful PTCA/Drug-Eluting Stent placement in the proximal OM1. Patient had successful PTCA in the distal Circ. S/P CABG 1 of 2 patent bypass grafts.There is fair quality collateral vessel/vessels from the Distal LAD to the Right PDA that are visualized.There is fair quality collateral vessel/vessels from the Distal Circumflex to the Right PDA that are visualized. Echo EF 55%, mild concentric LVH, mild LVDD, no significant valvular dysfunction. Not all well segments were well visualized. DAPT (ASA and Plavix) uninterrupted x 1 year. Pt verbalizes understanding. Continue BB. Intolerant to statins. Right femoral acces site healing well. No bleeding, hematoma or ecchymosis noted. Stepped down to regular floor today. Will not discharge today given ALEJANDRA. IV fluids, UA. Qualifiers: Involved coronary artery: left circumflex coronary artery Qualified Code(s) : I21.21 - ST elevation (STEMI) myocardial infarction involving left circumflex coronary artery (2) ALEJANDRA (acute kidney injury) Current Visit: Yes Status: Acute ALEJANDRA on CKD stage 3. Creatinine was 1.39 yesterday, 1.82 today. Will start IV fluids, hold Lisinopril, avoid nephrotoxins. Recheck BMP at 1500. If continuing to worsen, will consult nephrology. Pt reports painful urination, feels like she has a UTI. Will order UA with reflex culture. (3) CAD (coronary artery disease) Current Visit: No Status: Chronic As above, hx of CABG and now s/p PCI. ASA, Plavix, BB. Intolerant to statins. Qualifiers: Coronary Disease-Associated Artery/Lesion type: [place] artery [place] vs. transplanted heart: [place] heart Associated angina: without angina Qualified Code(s): I25.10 - Atherosclerotic heart disease of [place] coronary artery without angina pectoris Discussion w patient/family: The assessment and plan as outlined above was discussed with the patient and/or family members who expressed understanding and agreement. All questions were answered. Thank you for involving us in the care of your patient. Please call with any questions. I will discuss all the above with Dr. Lorenz and make changes as necessary. Subjective Principal diagnosis: STEMI Interval history: Pt denies chest pain or dyspnea. Reports painful urination, feels like she has a UTI. Creatinine has worsened--was 1.39 yesterday, 1.82 today. Echo EF 55%, mild concentric LVH, mild LVDD. no significant valvular dysfunction. Not all wall segments visualized. Objective Vital Signs, Last 4 Hours Temp Pulse Resp BP Pulse Ox 02/08/17 10:43 97.8 F 79 16 104/45 96 02/08/17 07:30 97.7 F Vital Signs Temp Pulse Pulse Resp BP Pulse Ox 02/08/17 10:43 97.8 F 79 16 104/45 96 02/08/17 07:30 97.7 F 02/08/17 07:00 80 18 102/46 98 02/08/17 04:58 98.0 F 75 16 117/55 98 02/08/17 03:18 71 14 91/44 97 02/08/17 01:07 77 16 83/44 96 02/08/17 00:51 98.1 F 02/07/17 23:00 74 16 99/44 02/07/17 20:55 80 18 108/49 97 02/07/17 20:44 97.9 F 02/07/17 19:00 82 18 101/48 97 02/07/17 17:00 90 17 112/50 97 02/07/17 15:41 97.7 F 02/07/17 15:00 72 72 17 106/58 97 02/07/17 13:00 75 18 96/51 98 02/07/17 11:40 97.6 F 02/07/17 11:28 92 02/07/17 11:27 98 Intake and Output 02/07/17 02/08/17 02/08/17 23:59 07:59 15:59 Intake Total 360 / 360 0 / 0 Output Total 200 / 200 Balance 160 / 160 0 / 0 Intake: Oral 360 / 360 0 / 0 Output: Urine 200 / 200 General: Conversant, No Apparent Distress HEENT: Atraumatic, Normocephaly, Mucus Membranes Moist Neck: No JVD, Normal carotid pulses Cardiac: Reg Rate and Rhythm, Normal S1 and S2, No Murmur Lungs: Normal Breath Sounds, No Wheeze, Rales, Rhonchi Neuro: Alert and responsive, No focal deficits noted Abdomen: Soft, Non-Tender Skin: Other (right femoral acces site healing well. No bleeding, hematoma or ecchymosis noted.) Musculoskeletal: No Chest Wall Tenderness Extremities: No Clubbing, No Cyanosis, No Edema, Normal Pulses Results 02/08/17 08:43 02/08/17 08:43 Lab Results 02/08/17 02/08/17 08:43 08:43 WBC 10.1 Hgb 11.8 Hct 36.6 Plt Count 190 Sodium 132 L Potassium 4.2 Chloride 102 Carbon Dioxide 21 L BUN 48 H Creatinine 1.82 H Glucose 97 Calcium 9.1 Short CBC 02/08/17 Range/Units 08:43 WBC 10.1 (4.3-11.1) K/mcL Hgb 11.8 (11.5-15.4) g/dL Hct 36.6 (35.3-44.9) % Plt Count 190 (140-400) K/mcL Neutrophils # 7.3 (1.6-8.9) K/mcL BMP 02/08/17 Range/Units 08:43 Sodium 132 L (136-145) mEq/L Potassium 4.2 (3.5-5.1) mEq/L Chloride 102 (98-107) mEq/L Carbon Dioxide 21 L (23-29) mEq/L BUN 48 H (8-23) mg/dL Creatinine 1.82 H (0.60-1.20) mg/dL Glucose 97 (70-105) mg/dL Calcium 9.1 (8.6-10.3) mg/dL Active Medications Acetaminophen (Tylenol) 500 mg PO Q6HR PRN PRN Reason: Mild Pain Stop: 08/08/17 08:24 Last Admin: 02/08/17 05:49 Dose: 500 mg Allopurinol (Zyloprim) 100 mg PO DAILY [facility] Stop: 08/09/17 10:31 Last Admin: 02/08/17 07:43 Dose: 100 mg Alprazolam (Xanax) 0.25 mg PO BID PRN; Protocol PRN Reason: Anxiety Stop: 08/08/17 20:13 Last Admin: 02/07/17 18:13 Dose: 0.25 mg Aspirin (Aspirin) 81 mg PO DAILY [facility] Stop: 08/08/17 09:01 Last Admin: 02/08/17 07:43 Dose: 81 mg Clopidogrel Bisulfate (Plavix) 75 mg PO DAILY [facility] Stop: 08/08/17 09:01 Last Admin: 02/08/17 07:43 Dose: 75 mg Famotidine (Pepcid) 20 mg PO 0730 [facility] PRN Reason: Protocol Stop: 08/08/17 21:01 Last Admin: 02/08/17 07:43 Dose: 20 mg Sodium Chloride (0.9 % Sodium Chloride) 1,000 mls @ 75 mls/hr IVC .[id number] [facility] Stop: 08/10/17 10:46 Lisinopril (Zestril) 40 mg PO DAILY [facility] Stop: 08/09/17 10:31 Last Admin: 02/08/17 07:44 Dose: 40 mg Loratadine (Claritin) 10 mg PO DAILY [facility] Stop: 08/09/17 10:31 Last Admin: 02/08/17 07:44 Dose: 10 mg Metoprolol Tartrate (Lopressor) 50 mg PO BID [facility] Stop: 08/09/17 10:31 Last Admin: 02/08/17 07:44 Dose: Not Given Morphine Sulfate (Morphine Sulfate) 4 mg IVP Q3H PRN PRN Reason: Severe Pain (7-10) Stop: 08/08/17 08:24 - Imaging and Cardiology Echo: report reviewed Cardiac cath: report reviewed - VTE Reasons for not Prescribing Prophylaxis: Not indicated-Anticoagulated or INR therapeutic Documentation of Mechanical Device: Intermittent pneumatic compression device Consult Discharge Plan - Plan Referrals: Elpidio Ruggiero MD [Primary Care Provider] -
[2017-02-08] MEDS ORDERED: 0.9 % Sodium Chloride 1,000 ML ONE (11:13)
[2017-02-08] MEDS: 0.9 % Sodium Chloride 1,000 ML IVC SCH (11:25)
[2017-02-08 11:46] LABS: Bilirubin,Urine Negative (Negative); Blood,Urine Negative (Negative); Clarity,Urine Cloudy (Clear); Color,Urine Yellow (Yellow); Glucose,Urine (UA) Normal (Normal); Ketones,Urine Negative (Negative); Leukocyte Esterase,Urine Moderate (Negative); Nitrite,Urine Negative (Negative); PH,Urine 5.5 pH Units (5.0-8.0); Protein,Urine Negative (Neg-Trace); Specific Gravity,Urine 1.025 (1.010-1.025); Urobilinogen,Urine Normal (Normal)
[2017-02-08 11:48] LABS: Bacteria,Urine Many per hpf (None-Few); Hyaline Casts,Urine Few per lpf (None-Few); Squamous Epithelial Cell,Urine Many per lpf (None-Few); WBC,Urine TNTC per hpf (0-3)
[2017-02-08 15:26] LABS: Calcium 9.3 mg/dL (8.6-10.3); Potassium 4.6 mEq/L (3.5-5.1)
[2017-02-09] MEDS: 0.9 % Sodium Chloride 1,000 ML IVC SCH (01:30)
[2017-02-09 04:09] LABS: Calcium 8.8 mg/dL (8.6-10.3); Potassium 4.2 mEq/L (3.5-5.1)
[2017-02-09] MEDS: Loratadine 10 MG TABLET PO SCH (07:41)
[2017-02-09] MEDS: Famotidine 20 MG TABLET PO SCH (07:41)
[2017-02-09] MEDS: Aspirin 81 MG TAB.CHEW PO SCH (07:41)
[2017-02-09 07:56] VITALS: BP 135/63
--- NOTE | 2017-02-09 11:00 | Discharge Summary ---
Date of Encounter: 02/09/17 Time of Encounter: 10:54 - Discharge Diagnosis (1) STEMI (ST elevation myocardial infarction) Priority: Primary Status: Acute Qualifiers: Involved coronary artery: left circumflex coronary artery Qualified Code(s) : I21.21 - ST elevation (STEMI) myocardial infarction involving left circumflex coronary artery (2) ALEJANDRA (acute kidney injury) Priority: Secondary Status: Acute (3) CAD (coronary artery disease) Priority: Primary Status: Chronic Qualifiers: Coronary Disease-Associated Artery/Lesion type: [place] artery [place] vs. transplanted heart: [place] heart Associated angina: without angina Qualified Code(s): I25.10 - Atherosclerotic heart disease of [place] coronary artery without angina pectoris - Discharge Medications Prescriptions: Nitroglycerin 0.4 mg SL Q5MIN #30 tab.subl Allopurinol [Zyloprim 100 MG] 100 mg PO DAILY #30 tablet Aspirin [Lo-Dose Aspirin EC] 81 mg PO DAILY #30 tablet. Ciprofloxacin [Cipro] 250 mg PO BID #5 tablet Clopidogrel [Plavix] 75 mg PO DAILY #30 tablet Docusate [Colace] 100 mg PO DAILY PRN #30 capsule PRN Reason: Constipation Ferrous Sulfate 325 mg PO BID #60 tablet Metoprolol [Lopressor] 50 mg PO BID #60 tablet Ranitidine HCl [Heartburn Relief] 150 mg PO BID #60 tablet Home Medications: ALPRAZolam [Xanax 0.25 MG Tablet] 0.25 mg PO BID PRN 09/23/16 [History] Loratadine [Claritin] 10 mg PO DAILY 09/23/16 [History] Allopurinol [Zyloprim 100 MG] 100 mg PO DAILY #30 tablet 02/09/17 [Rx] Aspirin [Lo-Dose Aspirin EC] 81 mg PO DAILY #30 tablet. 02/09/17 [Rx] Ciprofloxacin [Cipro] 250 mg PO BID #5 tablet 02/09/17 [Rx] Clopidogrel [Plavix] 75 mg PO DAILY #30 tablet 02/09/17 [Rx] Docusate [Colace] 100 mg PO DAILY PRN #30 capsule 02/09/17 [Rx] Ferrous Sulfate 325 mg PO BID #60 tablet 02/09/17 [Rx] Metoprolol [Lopressor] 50 mg PO BID #60 tablet 02/09/17 [Rx] Nitroglycerin 0.4 mg SL Q5MIN #30 tab.subl 02/09/17 [Rx] Ranitidine HCl [Heartburn Relief] 150 mg PO BID #60 tablet 02/09/17 [Rx] Allergies/Adverse Reactions: 3 Allergy/AdvReac Type Severity Reaction Status Date / Time Amoxicillin Allergy Anaphylaxis Verified 02/06/17 05:24 guaifenesin Allergy Swelling Verified 02/06/17 05:24 of Lip/Tongue/Throat Influenza Virus Vaccines Allergy See Verified 02/06/17 05:19 Comments Sulfa (Sulfonamide Allergy Anaphylaxis Verified 02/06/17 05:24 Antibiotics) baclofen AdvReac See Verified 02/06/17 05:24 Comments doxycycline AdvReac Vomiting Verified 02/06/17 05:24 hydrochlorothiazide AdvReac See Verified 02/06/17 05:24 Comments [id number] Reductase AdvReac Muscle Pain Verified 02/06/17 05:24 Inhibitor [Statins] flu vaccine AdvReac See Uncoded 02/06/17 05:24 Comments Date of admission: 02/06/17 06:45 Primary care physician: Elpidio Ruggiero MD Consults: 02/06/17 08:26 Consult to Cardiac Rehabilitation-Phase1 [CONS] Routine Comment: Reason for Consult: AMI Call Completed: Yes Consult to Nurse Navigator [CONS] Routine Comment: Discharging clinician: Arnav Escobar Anticipated date of discharge: 02/09/17 - Patient Status Disposition: Home, Self-Care Condition: Fair Functional capacity at discharge: independent ambulation Overall status at discharge: patient is progressing back to baseline - Discharge Instructions Follow Up With: Elpidio Ruggiero MD [Primary Care Provider] - Additional Instructions: RISK FACTORS: STOP SMOKING: If you smoke, STOP. Smoking or tobacco use significantly increases your risk of heart disease because nicotine causes the arteries to narrow or constrict. It also causes fats to stick to the artery. Your chances of having a heart attack are greatly increased if you continue to smoke. For more information, call the education line for smoking cessation [id number] EAT A LOW FAT/CHOLESTEROL/SODIUM DIET: This diet may help reduce your chances of having a heart attack. LIFTING: Avoid lifting anything more than 10 pounds for 5-7 days Prior to straining, laughing, sneezing and/or coughing, apply manual pressure directly over insertion site. ACTIVITY: You may walk or climb stairs as tolerated You can resume sexual activity as tolerated In general, you are encouraged to engage in a minimum of 30 minutes or more of moderate intensity physical activity, such as brisk walking, daily or at least 3 -4 times weekly BATHING Do not submerge the site into water (bath tub, hot tub, swimming pool) for 1 week. This can be a source for infection into the blood stream. You may shower after 24 hours SITE CARE: After 24 hours, you may remove the dressing and leave the site open to air. Keep the site clean and dry. Clean gently and pat dry. You can expect bruising and tenderness that gradually resolve within a week or two. Return to work as instructed per your physician Resume driving as instructed per physician Keep all scheduled follow up appointments Resume medications as instructed IMPORTANT: If prescribed a Platelet Aggregation Inhibitor such as, Plavix, Brilinta or Effient: Duration of therapy is minimum one year These medications are often used in combination with Aspirin in prevention of future heart attacks Never discontinue unless consult with your [employer] STROKE (CVA) Risk factors for a stroke are: Age, cigarette smoking, diabetes, excessive alcohol consumption, family history, high blood pressure, overweight, physical inactivity, prior stroke, heart attack, diagnosis of carotid artery stenosis or other artery disease. Warning signs: Sudden numbness or weakness of the face, arm or leg; especially on one side of the body, sudden confusion, trouble speaking or understanding, sudden trouble seeing in one or both eyes, sudden trouble walking, dizziness, loss of balance or coordination, sudden severe headache with no cause. Call 911 or go to the Emergency Room. CONGESTIVE HEART FAILURE: If you have been diagnosed with Congestive Heart Failure (CHF) and your symptoms return, make an appointment with your physician Weigh yourself daily. Notify your physician if you have a weight gain of two or more pounds in one day or five or more pounds in one week. If you experience any difficulty breathing, please call 911 BLEEDING: Although the risk of bleeding is minimal, it can happen. If you have any bleeding from the site, apply firm pressure above the puncture site for 10-15 minutes. If the bleeding does not stop, continue manual pressure and call 911 Contact your physician if: You develop a fever greater than 101 degrees Fahrenheit Your site becomes reddened or has any drainage You have an increase in pain or burning at the site or if a large knot forms at the site. If you experience chest pain, shortness of breath, dizziness, or extreme tiredness, stop the activity and rest. Please notify your physicians office if you experience any of these symptoms and they are not relieved by rest please call 911! - Diet and Activity Activity: increase activity as tolerated Diet: low fat, low cholesterol - Hospital Course Hospital course: Ms. Mega Harkins is a 76 year old female H/o HTN, HLP, CAD s/p CABG with WOOD to LAD, SVG to OM1 10/2016 that presented with chest pain and inferior ST elevations. LHC revealed severe three vessel coronary artery disease, EF 55% Patient had successful PTCA/Drug-Eluting Stent placement in the proximal OM1. Patient had successful PTCA in the distal Circ. S/P CABG 1 of 2 patent bypass grafts. There is fair quality collateral vessel/vessels from the Distal LAD to the Right PDA that are visualized. There is fair quality collateral vessel/ vessels from the Distal Circumflex to the Right PDA that are visualized. Echo EF 55%, mild concentric LVH, mild LVDD, no significant valvular dysfunction. Not all well segments were well visualized. DAPT (ASA and Plavix) uninterrupted x 1 year. Pt verbalizes understanding. Continue BB. Intolerant to statins. Right femoral access site healing well. No bleeding, hematoma or ecchymosis noted. Pt developed ALEJANDRA, peak creatinine 1.82, that improved after IV fluids. Creatinine 1.27 today, which is within her baseline range--CKD stage 3 at baseline. ACEi stopped. BMP in 1 week as outpt, can consider resuming ACEi as outpt. Pt complained of dysuria during stay--UA revealed leuk esterase, bacteria and WBCs, but seemed to be contaminated and no culture was indicated. Discussed with hospitalist team, who recommended treating with 3 days of cipro given symptoms. Pt being discharged home in stable condition. Follow-up as outpt within 1 week--will coordinate. - Time Spent with Patient Total time spent providing and/or coordinating discharge services: Less than 30 minutes Physical Examination Vital Signs, Last 4 Hours Temp Pulse Resp BP Pulse Ox 02/09/17 07:54 97.6 F 81 18 135/63 97 Vital Signs Temp Pulse Resp BP Pulse Ox 02/09/17 07:54 97.6 F 81 18 135/63 97 02/09/17 04:51 97.9 F 79 16 121/66 96 02/08/17 23:29 98.7 F 73 14 108/47 97 02/08/17 20:20 98.3 F 84 15 121/49 96 02/08/17 16:29 98.1 F 88 18 132/54 100 Intake and Output 02/08/17 02/09/17 02/09/17 23:59 07:59 15:59 Intake Total 500 / 500 1500 / 1500 120 / 120 Balance 500 / 500 1500 / 1500 120 / 120 Intake: IV Fluids 1000 / 1000 0.9 % Sodium Chloride 1,000 ML 1000 / 1000 @ 75 mls/hr IVC .[id number] MILLICENT Rx #:[id number] Oral 500 / 500 500 / 500 120 / 120 Other: Meal Breakfast Percent of Meal Consumed 100% # Voids 1 1 Weight 72.9 kg Patient Weight 02/09/17 23:59 Weight 72.9 kg General: Conversant, No Apparent Distress HEENT: Atraumatic, Normocephaly, Mucus Membranes Moist Neck: No JVD, Normal carotid pulses Cardiac: Reg Rate and Rhythm, Normal S1 and S2, No Murmur Lungs: Normal Breath Sounds, No Wheeze, Rales, Rhonchi Neuro: Alert and responsive, No focal deficits noted Abdomen: Soft, Non-Tender Skin: Other (right femoral access site healing well. No bleeding, hematoma or ecchymosis noted.) Musculoskeletal: No Chest Wall Tenderness Extremities: No Clubbing, No Cyanosis, No Edema, Normal Pulses - VTE Reasons for not Prescribing Prophylaxis: Not indicated-Anticoagulated or INR therapeutic Documentation of Mechanical Device: Intermittent pneumatic compression device
== END 2017-02-09 13:59 | disposition home or self-care (01) | DRG 247 ==
LOC: ICNU 06:45 → MERGE 06:45 → 2NENU 02-08 10:38
PROVIDERS: ADMIT Internal Medicine Interventional Cardiology; ATTEND Internal Medicine Interventional Cardiology